=== PATIENT | female | born 1990 | race Caucasian/White ===

== ENCOUNTER → 2021-09-19 12:26 | Outpatient (CLI) | payer MEDICAID, SELFPAY ==
[2021-09-19 13:46] LABS: Absolute Lymphocyte Count 2.71 X10^3/uL (0.83-4.51); Absolute Neutrophil Count 2.9 X10^3/uL (2.0-7.7); Basophil# 0.04 X10^3/uL; Basophil% 0.7 % (0-1); Eosinophil# 0.04 X10^3/uL; Eosinophils% 0.7 % (0-5); Hematocrit 39.9 % (37-47); Hemoglobin 12.8 g/dL (12.0-15.0); Lymphocyte # 2.71 X10^3/ul (0.83-4.51); Lymphocyte % 44.4 % (19-41); Mean Corp Hgb Conc 32.1 g/dL (32-36); Mean Corpuscular Volume 90.3 fL (81-99); Mean Platelet Vol. 10.6 fl (6.2-12.0); Monocyte# 0.39 X10^3/uL; Monocyte% 6.4 % (0-10); NRBC Flagged by Analyzer 0 % (0-5); Neutrophil # 2.91 X10^3/uL (2.7-7.7); Neutrophil % 47.5 % (47-70); Platelet Count 295 K/mm3 (150-450); RBC Distribution Width CV 14.8 % (11.6-14.6); RBC Distribution Width SD 48.5 fl (35.1-43.9); Red Blood Count 4.42 M/mm3 (4.2-5.4); White Blood Count 6.1 K/mm3 (4.4-11.0)
[2021-09-19 14:20] LABS: Hemoglobin A1c 5.6 % (3.8-5.6)
[2021-09-19 14:57] LABS: AST(SGOT) 12 U/L (15-37); Alanine Aminotransfer ALT/SGPT 10 U/L (13-56); Albumin, Serum 3.7 g/dL (3.2-5.0); Alkaline Phosphatase 79 U/L (45-117); Anion Gap 5 (5-15); BUN 8 mg/dL (7-18); BUN/Creat Ratio 8.6 RATIO (10-20); Calcium,Total 8.7 mg/dL (8.5-10.1); Chloride 108 mmol/L (98-107); Cholesterol 147 mg/dL (200); Creatinine, Serum 0.93 mg/dL (0.55-1.02); EST Glomerular Filtration Rate 75 mL/min (>60); Est Glom Filt Rate - Afr Amer 91 mL/min (>60); Globulin 3.6 g/dL (2.2-4.2); Glucose 83 mg/dL (74-106); HIV - WCH Non-Reactive (Nonreactive); Hepatitis C Antibody Non-Reactive (Nonreactive); High Density Lipoprotein 64 mg/dL; Potassium 3.9 mmol/L (3.5-5.1); Protein, Total 7.3 g/dL (6.4-8.2); Sodium Level 139 mmol/L (136-145); T4 Free Direct 0.96 ng/dL (0.76-1.46); Thyroid Stim Hormone (TSH) 0.66 uIU/mL (0.358-3.74); Triglycerides 90 mg/dL; Very Low Density Lipoprotein 18 mg/dL (5-40); Vitamin B12 474 pg/mL (211-911); Vitamin D,25 Hydroxy 19.4 ng/mL
== END ==
PROVIDERS: PCP Preventive Medicine Occupational Medicine
DX: F33.1 Major depressive disorder, recurrent, moderate (principal); F10.20 Alcohol dependence, uncomplicated; F11.20 Opioid dependence, uncomplicated
CPT/HCPCS: 36415; 80053; 80061; 82306; 82607; 82746; 83036; 84439; 84443; 85025; 86703; 86803

== ENCOUNTER → 2022-04-17 | Outpatient (CLI) | payer MEDICAID, SELFPAY ==
[2022-04-17 12:40] LABS: Lipase 120 U/L (73-393)
== END | disposition home or self-care (01) ==
LOC: LABSPEC 12:12
PROVIDERS: PCP Preventive Medicine Occupational Medicine; Referring Provider Nurse Practitioner Family; Visit Provider Nurse Practitioner Family
DX: R10.31 Right lower quadrant pain (principal)
CPT/HCPCS: 83690

== ENCOUNTER 2023-07-11 10:14 | Emergency (ER) | payer MEDICAID, SELFPAY ==
[2023-07-11 10:15] VITALS: BP 182/113; PULSE 94; RESP 16; TEMP 36.2; O2SAT 100; BMI 22.3
--- NOTE | 2023-07-11 12:36 | ED.RN ---
PT GOOGLED REMEDIES, LWBS.
== END 2023-07-11 12:49 | disposition left against medical advice (07) ==
LOC: ED 12:48
PROVIDERS: PCP Preventive Medicine Occupational Medicine
DX: Z53.21 Procedure and treatment not carried out due to patient leaving prior to being seen by health care provider (principal)

== ENCOUNTER 2025-03-10 08:00 | Outpatient (RCR) | payer MEDICAID, SELFPAY ==
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
[2025-03-10 10:06] VITALS: BP 142/92; PULSE 74
--- NOTE | 2025-03-10 11:10 | BH.SGPN.GN ---
Behaviors/Verbalizations/Mental Status: []Pt alert and oriented, casually dressed and groomed. Eye contact good. Motor activity appropriate. Speech within normal limits. Affect congruent, mood anxious and depressed. Thoughts linear, logical, no signs of hallucinations or delusions. Client Response/Progress/Benefit: [] Pt responded well to session, participating in activity and small group discussion. Group reviewed the rest of the defense mechanisms and discussed how these are adaptive, maladaptive, or somewhere in the duong. Pt's defense mechanisms included rationalization, suppression, denial, projection, and humor. Pt listened to electrophysiology technician teach different skills to help pt?s cope with or change their defense mechanisms. Pt appeared to benefit from gaining insight to the different defense mechanisms and learning coping skills. Reports wanting to work on reducing use of denial. Pt will continue IOP tx to prevent decompensation, improve distress tolerance skills, and increase self-confidence. Narrative Note: []
--- NOTE | 2025-03-10 11:10 | BH.SGPN.GN ---
Behaviors/Verbalizations/Mental Status: []Pt alert and oriented, casually dressed and groomed. Eye contact good. Motor activity appropriate. Speech within normal limits. Affect congruent, mood anxious and depressed. Thoughts linear, logical, no signs of hallucinations or delusions. Client Response/Progress/Benefit: [] Pt responded well to session, participating in activity and small group discussion. Group reviewed the rest of the defense mechanisms and discussed how these are adaptive, maladaptive, or somewhere in the duong. Pt's defense mechanisms included rationalization, suppression, denial, projection, and humor. Pt listened to [employer] consultant teach different skills to help pt?s cope with or change their defense mechanisms. Pt appeared to benefit from gaining insight to the different defense mechanisms and learning coping skills. Reports wanting to work on reducing use of denial. Pt will continue IOP tx to prevent decompensation, improve distress tolerance skills, and increase self-confidence. Narrative Note: []
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
--- NOTE | 2025-03-10 11:39 | BH.DR.ITP ---
Initial Treatment Plan Patient Information Visit Information: ADMISSION DATE: EXPECTED LOS: 4-6 weeks Problems/Symptoms Problem #1:: Depression Symptom:: Sadness, hopelessness, anhedonia, hypersomnia, low energy, decreased concentration, guilt, passive thoughts of Problem #2:: Anxiety Symptom:: Worry, rumination, recent panic attack, avoidance, flashbacks
--- NOTE | 2025-03-10 12:14 | BH.MTP ---
Master Treatment Plan Patient Information Program Physician:: Dr. Abreu Primary Therapist:: Katt Pat, [facility] Psychiatric Diagnoses Psychiatric Diagnoses:: 1. Major depressive disorder, recurrent, severe without psychosis 2. Generalized anxiety disorder 3. PTSD 4. ADD 5. Methamphetamine use disorder in full remission for 3 years 6. THC use disorder Diagnosis Code(s):: F33.2 Estimated LOS Estimated LOS (in weeks):: 6 Problem/Goal #1 Problem/Goal #1 Stated Goal:: Client will reduce depressive symptoms, feelings of hopelessness, and anhedonia due to Major Depressive Disorder through Intensive Outpatient Program. Description of Barriers: Potential barriers to treatment include: negative self-talk, limited support, cognitive distortions, and relying on others for transportation for treatment. Functional Impact: The patient is a 34-year-old single female with a history of depression, anxiety, PTSD, ADD, and methamphetamine use disorder (in full remission for 3 years) who was referred to the [facility] behavioral health [facility] by recovery court due to her inability to function well due to the above mental health issues. Patient currently lives alone and is working to gain back her 9-year-old son. Patient has had depressive episodes for most of my life which leave her frozen. She states that she will lie on the couch for weeks at a time and she wants to sleep all the time to escape She endorses sadness, hopelessness, worthlessness, anhedonia, hypersomnia sleeping 8 to 12 hours a day and taking naps. She also endorses low energy, decreased concentration, guilt and passive thoughts of . She states I do not want to really , just not wake up. She denies suicidal ideation, plan for suicide, homicidal ideation, hallucinations, delusions or symptoms of cliff ever. She is a worrier by nature and ruminates negatively. Objectives Objective #1: Stated Objective: Client will learn and utilize 2-3 healthy coping strategies to manage depressive symptoms. Interventions: Therapist will utilize CBT techniques to assist client with understanding the connection between thoughts, feelings and behaviors. Education will be provided on behavioral activation. Therapist will assist client in learning internal coping strategies to manage depressive symptoms, along with helping client identify triggers. Discharge Criteria: Client will have achieved this goal when can verbalize and has practiced at least 2 healthy coping strategies that successfully manage depressive symptoms. Target Date: 04/21/25 Review Date: 04/07/25 Objective #2: Stated Objective: Identify at least 2-3 negative self-talk messages that reinforce depressed mood and replace thoughts with positive messages. Interventions: Therapist will help client identify distorted, negative beliefs about self and replace with more realistic, affirmative messages. Discharge Criteria: Client will have achieved this goal when can verbalize at least 2 negative self-talk messages and effectively replace those thoughts with affirmative messages. Target Date: 04/21/25 Review Date: 04/07/25 Problem/Goal #2 Problem/Goal #2 Stated Goal:: Reduce overall frequency, intensity, and duration of the anxiety so that daily functioning is not impaired. Description of Barriers: Potential barriers to treatment include: negative self-talk, limited support, cognitive distortions, and relying on others for transportation for treatment. Functional Impact: The patient is a 34-year-old single female with a history of depression, anxiety, PTSD, ADD, and methamphetamine use disorder (in full remission for 3 years) who was referred to the [facility] behavioral health [facility] by recovery court due to her inability to function well due to the above mental health issues. Patient currently lives alone and is working to gain back her 9-year-old son. Patient has had depressive episodes for most of my life which leave her frozen. She states that she will lie on the couch for weeks at a time and she wants to sleep all the time to escape She endorses sadness, hopelessness, worthlessness, anhedonia, hypersomnia sleeping 8 to 12 hours a day and taking naps. She also endorses low energy, decreased concentration, guilt and passive thoughts of . She states I do not want to really , just not wake up. She denies suicidal ideation, plan for suicide, homicidal ideation, hallucinations, delusions or symptoms of cliff ever. She is a worrier by nature and ruminates negatively. Objectives Objective #1: Stated Objective: Client will learn and implement 2-3 calming skills to reduce overall anxiety and manage anxiety symptoms. Interventions: Therapist and group sessions will help client identify physiological warning signs of anxiety, increase awareness of thoughts that increase anxiety, and identify behaviors that reinforce anxious symptoms. Group and individual counseling will teach client calming skills to help manage anxious symptoms. Discharge Criteria: Client will have achieved this goal when can verbalize at least 2 calming skills and reports skills successfully help reduce anxious symptoms. Target Date: 04/21/25 Review Date: 04/07/25 Objective #2: Stated Objective: Client will identify 2-3 anxiety triggers and 2 coping skills to use when feeling anxious. Interventions: Therapist will assist client in exploring what triggers anxiety and teach client coping strategies to effectively manage anxiety symptoms. Discharge Criteria: Client will have met this goal when can identify at least 2 triggers to anxiety and verbalize two healthy ways to cope with feelings of anxiety. Target Date: 04/21/25 Review Date: 04/07/25
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
--- NOTE | 2025-03-11 09:05 | BH.SGPN.GN ---
Behaviors/Verbalizations/Mental Status: [] Eye contact is good. Motor activity is appropriate. Appearance is disheveled. Speech is Appropriate. Mood is depressed and anxious. Affect is congruent. Thoughts are linear and logical. No evidence of psychosis. Reviewed daily check in sheet and no reports of suicidal ideations or intent. Client Response/Progress/Benefit: [] Pt was an active participant in group discussions. Attentive. Daily symptom tracker notes 5/5 for depression, 4/5 for anxiety, and 3/5 for irritability. Pt participated at times during the group discussions. Attentive. Admits that it was a struggle to get into IOP today due to depression and lack of motivation. ? Didn?t want to get out of bed?. Feels overwhelmed and depressed. She has a case open with children services which she discussed briefly. They have been encouraging her to clean up her house however due to significant depression this has been very difficult. She did however move a mattress yesterday. Group praised her for her efforts. Limited progress as this was her second day in IOP. Benefited from group support, encouragement, and feedback. Will continue in IOP to prevent decompensation, increase healthy coping, and improve functioning. Narrative Note: []
--- NOTE | 2025-03-11 10:15 | BH.SGPN.GN ---
Behaviors/Verbalizations/Mental Status: []Eye contact is fair. Motor activity is appropriate. Appearance is casual. Speech is Appropriate. Mood is anxious and depressed. Affect is congruent. Thoughts are linear and logical. No evidence of psychosis. Client Response/Progress/Benefit: [] Pt was an active participant in group discussions. Attentive during psychoeducation. Contributed during interactive discussions in which peers attempted to define crisis. Group identified crisis examples. Group also worked together to identify warning signs and unhealthy responses to crisis which included shutting down, isolation, avoidance, over-thinking, disordered eating, and self-harm. Pt identified top 3 warning signs as: loss of motivation, racing thoughts, and isolating/avoiding others. Benefited from increased understanding of crisis and awareness of personal responses to crisis. Pt will continue IOP tx to prevent decompensation, gain healthy coping skills, and increase daily functioning. Narrative Note: []
--- NOTE | 2025-03-11 11:15 | BH.SGPN.GN ---
Behaviors/Verbalizations/Mental Status: []Pt alert and oriented, appropriate grooming/appearance. Eye contact good. Motor activity appropriate. Speech within normal limits. Affect congruent, mood depressed and anxious. Thoughts linear, logical, no signs of hallucinations or delusions. Client Response/Progress/Benefit: []Pt was an active participant in group discussions. Attentive during psychoeducation. In small group pt along with peers developed an active plan for their crisis warning signs. Pt identified three crisis warning signs as well as an action plan for each. One crisis warning sign was low motivation. Pt identified strategies to help with this such as: starting small, opposite action, positive self-talk, and reaching out to supports for help. Benefited from increased awareness of crisis warning signs and by developing crisis intervention strategies. Will continue in IOP to improve distress tolerance, increase use of healthy coping, and improve daily functioning. Narrative Note: []
--- NOTE | 2025-03-12 09:05 | BH.SGPN.GN ---
Behaviors/Verbalizations/Mental Status: [] Eye contact is good. Motor activity is appropriate. Appearance is disheveled. Speech is Appropriate. Mood is anxious and depressed. Affect is congruent. Thoughts are linear and logical. No evidence of psychosis. Reviewed daily check in sheet and no reports of suicidal ideations or intent. Client Response/Progress/Benefit: [] Pt was an active participant in group discussions. Attentive. Admits to struggling with anxiety, panic, and guilt. Reports having a ?freak out? over yesterday which resulted in utilizing cannabis to self-medication and cope. This led to feelings of guilt and failure due to the relapse. Also led to hopelessness. Shared the guilt associated with use. Limited motivation and energy. Continues to isolate and rely on unhealthy coping. Attempted behavior activation these last several days to help complete certain tasks. Emotion for today is ?blah?. No progress noted. Benefited from group support, encouragement, and feedback. Will continue in IOP to prevent decompensation, increase healthy coping, and improve functioning. Narrative Note: []
--- NOTE | 2025-03-12 10:10 | BH.SGPN.GN ---
Behaviors/Verbalizations/Mental Status: []Pt alert and oriented, casually dressed and groomed. Eye contact good. Motor activity appropriate. Speech within normal limits. Affect congruent, mood anxious. Thoughts linear, logical, no signs of hallucinations or delusions. Client Response/Progress/Benefit: []Pt was an active participant in group discussion and activity. Attentive during psychoeducation. Along with peers, pt was able to identify barriers to taking action in their life. Identified several symptoms and stressors that pt feels are holding them back from progress such as unhealthy coping skills, negative self-talk, and low confidence. Pt able to identify how these things have negatively impacted progress. Benefited from increased self-awareness of obstacles. Pt will continue IOP to improve daily functioning, increase healthy coping, and prevent decompensation.
--- NOTE | 2025-03-12 11:10 | BH.SGPN.GN ---
Behaviors/Verbalizations/Mental Status: []Pt alert and oriented, disheveled appearance. Eye contact good. Motor activity appropriate. Speech within normal limits. Affect congruent, mood anxious. Thoughts linear, logical, no signs of hallucinations or delusions. Client Response/Progress/Benefit: [] Pt responded well to session, taking notes and participating in worksheet discussion. Pt connected with the discussion on action steps, and this helped pt learn how to set goals differently. Pt set a SMART goal that she will write 3-5 triggers for her anger by next week. Pt shared putting up sticky note reminders and talking to her counselor will support pt in accomplishing this goal. Appeared to benefit from identifying a small goal to benefit mental health. Pt is to continue IOP tx to prevent decompensation, improve daily functioning, and gain healthy coping skills. Narrative Note: []
--- NOTE | 2025-03-19 09:05 | BH.SGPN.GN ---
Behaviors/Verbalizations/Mental Status: [] Eye contact is good. Motor activity is appropriate. Appearance is casual. Speech is Appropriate. Mood is euthymic. Affect is full. Thoughts are linear and logical. No evidence of psychosis. Reviewed daily check in sheet and no reports of suicidal ideations or intent. Client Response/Progress/Benefit: [] Narrative Note: [] Behaviors/Verbalizations/Mental Status: [] Eye contact is good. Motor activity is appropriate. Appearance is casual. Speech is Appropriate. Mood is euthymic. Affect is full. Thoughts are linear and logical. No evidence of psychosis. Reviewed daily check in sheet and no reports of suicidal ideations or intent. Client Response/Progress/Benefit: [] Narrative Note: []
--- NOTE | 2025-03-19 10:10 | BH.SGPN.GN ---
Behaviors/Verbalizations/Mental Status: [] Client alert and oriented, casually dressed and groomed. Eye contact good. Motor activity appropriate. Speech within normal limits. Affect congruent, mood euthymic. Thoughts linear, logical, no signs of hallucinations or delusions. Client Response/Progress/Benefit: [] Client responded well to session AEB providing input, taking notes throughout and listening attentively to others. Client was attentive throughout group activity identifying famous individuals and how they overcame failure to be successful. Client helped group identify how fear of failure can impact mental health and relationships Group identified it leads to self-sabotage, low self confidence, not trying, and isolation. Client participated in experiential activity, working with group members to problem solve. Appeared to benefit from increased knowledge of fear of failure. Will continue IOP tx to improve self-confidence, reduce distorted thinking patterns, and prevent decompensation. Narrative Note: []
--- NOTE | 2025-03-19 11:10 | BH.SGPN.GN ---
Behaviors/Verbalizations/Mental Status: [] Client alert and oriented, casually dressed and groomed. Eye contact good. Motor activity appropriate. Speech within normal limits. Affect congruent, mood euthymic. Thoughts linear, logical, no signs of hallucinations or delusions. Client Response/Progress/Benefit: [] Client responded well to session, engaged in the experiential activity and attentive throughout group processing. Client reported fear of failure has kept client from talking with children services. Client completed fear of failure worksheet and was able to identify thoughts and behaviors that reinforce personal fear of failure including isolating and putting up with rude people instead of setting boundaries. Client participated in small group discussion regarding strategies to overcome fear of failure. Identified wanting to work on reaching out to others and taking advice. Appeared to benefit from increased knowledge of strategies to combat fear of failure and gaining self-awareness. Client will continue IOP tx to prevent decompensation increase ability to regulate emotions. Narrative Note: []
== END 2025-03-20 23:59 ==
LOC: BHIOP 08:00
PROVIDERS: PCP Preventive Medicine Occupational Medicine; Referring Provider Psychiatry & Neurology Psychiatry; Visit Provider Psychiatry & Neurology Psychiatry
DX: F33.2 Major depressive disorder, recurrent severe without psychotic features (principal); F41.1 Generalized anxiety disorder; F43.10 Post-traumatic stress disorder, unspecified; F90.1 Attention-deficit hyperactivity disorder, predominantly hyperactive type; F12.91 Cannabis use, unspecified, in remission; F15.91 Other stimulant use, unspecified, in remission
CPT/HCPCS: H2012; H2020

== ENCOUNTER 2025-03-22 07:28 | Outpatient (RCR) | payer MEDICAID, SELFPAY ==
[2025-03-21 00:24] VITALS: BP 142/92; PULSE 74
--- NOTE | 2025-03-24 10:10 | BH.SGPN.GN ---
Behaviors/Verbalizations/Mental Status: []Eye contact is good. Motor activity is appropriate. Appearance is casual. Speech is Appropriate. Mood is depressed. Affect is congruent. Thoughts are linear and logical. No evidence of psychosis. Client Response/Progress/Benefit: []Pt was an active participant in group discussion. Engaged and attentive during psychoeducation and interactive discussion on coping skills, why people use unhealthy coping skills, how to replace unhealthy coping skills, and internal vs external coping skills. Attentive as peers came up with list of unhealthy coping skills. Pt reported personally, they tend to either numb, isolate, or avoid. Group discussed the effects of maladaptive coping skills on mental health. Benefited from increased understanding of unhealthy coping skills and the need for developing healthy internal and external coping skills. Actively participated during experiential group activity and was able to related this activity to group topic. Will continue in IOP to promote sobriety, apply healthy coping skills, and promote mood stability. Narrative Note: []
--- NOTE | 2025-03-24 11:15 | BH.SGPN.GN ---
Behaviors/Verbalizations/Mental Status: [] Pt alert and oriented, casual in appearance. Eye contact good. Motor activity appropriate. Speech within normal limits. Affect congruent, mood anxious. Thoughts linear, logical, no signs of hallucinations or delusions. Client Response/Progress/Benefit: [] Pt did not engage in group discussions however was attentive AEB taking notes, and listening attentively to others. Group discussed the different categories of coping skills which included distraction, emotional release, grounding, self-love, and thought challenging. Pt participated in creating a coping skills ?menu? from the different categories of coping skills. Pt's coping skill menu included: walking, grounding, crafting, and challenge distorted thoughts. Appeared to benefit from increasing repertoire of healthy coping skills. Will continue IOP to promote healthy coping, challenge distortions, and prevent decompensation.
--- NOTE | 2025-03-24 14:45 | BH.MDN_ITS ---
Multi-Disciplinary Note Note 45-min Individual: Time Started:: 09:00 Date: 03/24/25 Purpose of session/treatment goals addressed:: Purpose of session was to build rapport, review treatment goals, and gather background information. Eye Contact:: Good Motor Activity:: Appropriate Appearance:: Casual Speech:: Appropriate Mood:: Depressed Affect:: Congruent Thoughts:: Linear, Logical and No evidence of hallucinations/delusions noted Staff Interventions:: psychoeducation on: (cognitive triangle), CBT techniques, rapport building, strengths perspective, treatment planning and taught coping skills (behavior activation) Client Response:: Client reported she is seeking treatment because she is currently in recovery court and IOP was recommended to her. Client stated she is working towards staying sober and accomplishing the tasks that recovery court requires so she can get custody back of her son. Client shared her son is currently in kinship care living with her boyfriend and boyfriend's mom. Client stated she has been able to stay sober from meth, but is struggling with staying sober from marijuana. Client reported frustrated with herself for continuing to relapse with marijuana. Client reported she has done previous rehabs and [facility] treatment. Client stated while in IOP she wants to focus on being able to manage her depressed symptoms better. Client reported she struggles with negative thought patterns specifically focused on thoughts that she should be a better mom. Client stated she often jacob with her depressed mood by sleeping. Client stated she hasn't been engaging in things she enjoys like playing video games. Client reported she mostly lays around most days because she gets stuck in thinking she should be with her kids. Client responded well to psychoeducation about cognitive triangle and behavior activation. Client agreeable it would be helpful to focus on opposite action of showering, self- care, and trying to get back into video games. Risks/Concerns:: Denies suicidal ideation, plan, or intention to date. Progress Toward Goals/Plan:: Progress variable. Client reported struggling with cravings for marijuana, but has noted able to refrain from smoking. Client agreeable to focus on opposite action to get back into doing things she used to enjoy and decrease how much she is using sleep as a coping skill. Client to continue IOP to improve daily functioning, increase healthy coping, and prevent decompensation. Time Stopped:: 09:45
--- NOTE | 2025-03-25 09:05 | BH.SGPN.GN ---
Behaviors/Verbalizations/Mental Status: [] Eye contact is good. Motor activity is appropriate. Appearance is casual. Speech is Appropriate. Mood is anxious. Affect is congruent. Thoughts are linear and logical. No evidence of psychosis. Reviewed daily check in sheet and no reports of suicidal ideations or intent Client Response/Progress/Benefit: [] Pt was an active participant in group discussions. Attentive. Shared with the group that her primary goal is to stop cannabis use. Reports that she had a discussion with children's services and they were very clear that she cannot regain custody unless she is sober from all drugs. She accepts this and is able to reframe this consequence as a motivator to make changes in her life. She discussed the psychological dependence that she has on cannabis as she believes that it can help with motivation and sleep, however quickly pointed out the overall using has caused more harm than good. Certain peers shared thier journey with stopping cannabis use which was beneficial. Progress noted. Benefited from group support, encouragment, and feedback. Will continue in IOP to prevent decompensation, increase healthy coping skills, and improve functioning. Narrative Note: []
--- NOTE | 2025-03-25 11:15 | BH.SGPN.GN ---
Behaviors/Verbalizations/Mental Status: [] Client alert and oriented, casually dressed and groomed. Eye contact good. Motor activity appropriate. Speech within normal limits. Affect congruent, mood depressed. Thoughts linear, logical, no signs of hallucinations or delusions Client Response/Progress/Benefit: [] Client was an active participant, AEB taking notes and providing input in group discussions and activities. Attentive during psychoeducation. Client engaged during interactive discussion in which the group defined self-care and discussed its benefits. Group discussed barriers to engaging in self-care, reports connecting with barrier of lack of motivation. Client participated in small groups where they worked to identify common self-care ?myths?. Benefited from increased awareness of self-care, its benefits, and the consequences of not utilizing self-care strategies. Will continue IOP tx to prevent decompensation, promote healthy coping skill application, and increase functioning. Narrative Note: []
--- NOTE | 2025-03-25 11:15 | BH.SGPN.GN ---
Behaviors/Verbalizations/Mental Status: []Client alert and oriented, disheveled appearance. Eye contact good. Motor activity appropriate. Speech within normal limits. Affect congruent, mood depressed and anxious. Thoughts linear, logical, no signs of hallucinations or delusions. Client Response/Progress/Benefit: [] Pt engaged participant AEB completing self-assessment worksheet and providing input throughout discussion. Pt completed worksheet identifying current self-care practices and what self-care activities Pt wants to start using. Pt selected emotional self-care to begin practicing more consistently. Pt plans to do this by ?letting myself sit in emotions instead of numbing.? Appeared to benefit from completing the self-care evaluation and gaining insights into current self-care practices, as well as identifying areas in which Pt would like to improve upon. Pt will continue IOP tx to prevent decompensation, maintain sobriety, and increase distress tolerance skills. Narrative Note: []
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
--- NOTE | 2025-03-26 10:00 | BH.SGPN.GN ---
Behaviors/Verbalizations/Mental Status: [] Eye contact is good. Motor activity is appropriate. Appearance is casual. Speech is Appropriate. Mood is anxious and depressed. Affect is congruent. Thoughts are linear and logical. No evidence of psychosis. Client Response/Progress/Benefit: [] Pt was engaged and participating throughout, providing input and taking notes. Attentive during psychoeducation on anxiety and cognitive triangle. Participated in an interactive discussion on defining anxiety and identifying cognitive and physiological symptoms of anxiety. The group discussed helpful vs harmful anxiety. Pt identified their physical/physiological signs of anxiety which includes:migraines, muscle tensions, and upset stomach Benefited from increased awareness and insight on anxiety and its impact. Will continue in IOP to prevent decompensation, maintain safety, and increase healthy coping. Narrative Note: []
--- NOTE | 2025-03-26 11:00 | BH.SGPN.GN ---
Behaviors/Verbalizations/Mental Status: [] Eye contact is good. Motor activity is appropriate. Appearance is disheveled. Speech is Appropriate. Mood is anxious. Affect is congruent. Thoughts are linear and logical. No evidence of psychosis. Client Response/Progress/Benefit: [] Pt was an active participant AEB pt providing input and listening attentively to peers. Attentive during psychoeducation on mindfulness coping skills, body-based coping skills, and mind-based coping skills and their impact on reducing anxiety and improving overall mental health wellness. Group was able to identify self-soothing and mind-based coping skills which included: 5-senses, meditation, deep breathing, TIPP, thought challenging, prayer, affirmation, brain games, weighted blanket, and progressive muscle relaxation. Pt also participated with peers in practicing progressive muscle relaxation during session. Appeared to benefit from increasing repertoire of anxiety reduction skills. Pt will continue IOP to prevent decompensation, stablize mood, increase healthy coping, and improve functioning. Narrative Note: []
--- NOTE | 2025-03-31 10:00 | BH.SGPN.GN ---
Behaviors/Verbalizations/Mental Status: []Client alert and oriented, casually dressed. Eye contact good. Motor activity appropriate. Speech within normal limits. Affect congruent, mood anxious and depressed. Thoughts linear, logical, no signs of hallucinations or delusions. Client Response/Progress/Benefit: [] Pt was an active participant AEB taking notes and engaging in group activity. Connected with the topic of pitfalls and listened to group discussion on barriers that prevent from choosing a healthier path to mental wellness. Group worked together to identify examples of personal pitfalls. These examples included; shutting down, not asking for help, negative thinking patterns, avoidance, and isolation. Pt benefited from group as Pt learned to better identify potential barriers to improving mental health symptoms. Identified personal barrier of numbing with substances. Pt will continue IOP tx to prevent decompensation, improve distress tolerance, and increase self-care. Narrative Note: []
--- NOTE | 2025-03-31 13:57 | BH.MDN_ITS ---
Multi-Disciplinary Note Note 30-min Individual: Time Started:: 11:30 Date: 03/31/25 Purpose of session/treatment goals addressed:: Purpose of session was to address goals 1 and 2 from MTP. Eye Contact:: Good Motor Activity:: Appropriate Appearance:: Casual Speech:: Appropriate Mood:: Anxious and Dysthymic Affect:: Congruent Thoughts:: Linear, Logical and No evidence of hallucinations/delusions noted Staff Interventions:: thought challenging, CBT techniques, rapport building, strengths perspective and taught coping skills Client Response:: Client reported she is feeling increased stress because child protective services is moving forward with seeking custody of her 8-year-old son. Client stated typically takes 4 to 6 weeks before all the paperwork officially goes to the court system and is just worried about what is going to happen with her son. Client stated she has been having cravings to smoke marijuana with the added stress. Client reported she has been able to refrain from relapsing because she knows it will make her situation even worse. Client stated she reminds herself of the consequences of smoking and relapsing. Client stated she beat herself up over the fact that she did recently relapse because he goes against her personal value of wanting to get her child back. Client receptive to psychoeducation about addiction brain and how the physiological need for dopamine can override logical thoughts and values. Client and therapist discussed strategies that could be helpful for her to maintain sobriety and decrease relapse in the moments she is under high stress which often increases her cravings. Client receptive to writing down helpful messages on Post-it notes and putting the messages around her apartment as a visual aid reminder why she wants to maintain sobriety and not sabotage her life. Client states she has been trying to focus on not laying around every day and staying in her apartment because she knows it is a trigger for increased cravings. Client stated recently she walked to a store, started working out, and taking care of her flower garden. Reviewed additional self-care activities that she could engage in to keep her focus on maintaining her mental health and decreasing risk of relapse. Client stated she has been attending denominational on Sundays and Bible study group on Saturday evenings. Client reported attending AA meetings is helpful and needs to still find a new sponsor that is more local. Risks/Concerns:: Denies suicidal ideation, plan, intention. Future oriented. Progress Toward Goals/Plan:: Client reporting increase in anxiety due to child protective services starting the process of getting custody of her 8-year-old son. Client noted she still can get her son back but recognizes once he is in the custody of CPS it will take longer and require more things for her to do. Client is continuing to report cravings of wanting to use marijuana as a form of escape but has been able to stop herself from reverting to the unhealthy coping skill. Therapist encouraged client to focus on what is within her control currently and focus on engaging in self-care activities that could be nefit her mental health and give her something to look forward to. Plan is for client to continue IOP to challenge distortions, maintain sobriety, and prevent decompensation. Time Stopped:: 12:00
--- NOTE | 2025-04-01 09:05 | BH.SGPN.GN ---
Behaviors/Verbalizations/Mental Status: [] Eye contact is good. Motor activity is appropriate. Appearance is casual. Speech is Appropriate. Mood is anxious and depressed. Affect is congruent. Thoughts are linear and logical. No evidence of psychosis. Reviewed daily check in sheet and no reports of suicidal ideations or intent. Client Response/Progress/Benefit: [] Pt was an active participant in group discussions. Attentive. Daily symptom tracker notes 3/5 for anxiety and 2/5 for depression. Pt shared that she continues to struggle with cannabis urges. Self-medicated with cannabis for several years and has significant cravings. She asked the group for feedback and suggestions for overwhelming urges to smoke. Group provided support and feedback which was beneficial. Limited healthy coping skills for emotion regulation. Will continue in IOP to prevent decompensation, stabilize mood, increase healthy coping, and improve functioning. Narrative Note: []
--- NOTE | 2025-04-01 10:15 | BH.SGPN.GN ---
Behaviors/Verbalizations/Mental Status: []Pt alert and oriented, casually dressed and groomed. Eye contact good. Motor activity appropriate. Speech within normal limits. Affect congruent, mood anxious. Thoughts linear, logical, no signs of hallucinations or delusions. Client Response/Progress/Benefit: [] Pt an active participant in group discussions on defining conflict (internal/external) and possible benefits to conflict. Attentive during psychoeducation on conflict styles (avoidant, accommodating, competing, cooperative) and engaged during group discussion in which peers identified the benefits and consequences to each conflict style. 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 Benefited from increased awareness of the impact of conflict styles in mental health. Will continue in IOP tx to gain healthy coping skills, improve daily functioning, and maintain sobriety. ? Narrative Note: []
--- NOTE | 2025-04-01 11:15 | BH.SGPN.GN ---
Behaviors/Verbalizations/Mental Status: []Client alert and oriented, casually dressed and groomed. Eye contact fair. Motor activity appropriate. Speech within normal limits. Affect congruent, mood dysthymic. Thoughts linear, logical, no signs of hallucinations or delusions. Client Response/Progress/Benefit: [] Pt engaged in session AEB contributing to discussion and engaging in small group. Attentive during discussion on strategies for more effectively managing conflict in personal life. Pt noted current conflict resolution style uses the most is avoidant. Pt participated in small group for activity and did well practicing how to manage conflict scenarios. Pt given handout on fair fighting rules and how to identify common conflict barriers. Appeared to benefit from gaining strategies to help Pt better manage conflict. Will continue IOP tx improve distress tolerance, improve view of self, and prevent decompensation.
--- NOTE | 2025-04-02 09:05 | BH.SGPN.GN ---
Behaviors/Verbalizations/Mental Status: [] Eye contact is good. Motor activity is appropriate. Appearance is casual. Speech is Appropriate. Mood is depressed and irritable. Affect is full. Thoughts are linear and logical. No evidence of psychosis. Reviewed daily check in sheet and no reports of suicidal ideations or intent. Client Response/Progress/Benefit: [] Pt was an active participant in group discussions. Attentive. Daily symptom tracker notes 5 for anxiety, depression, and irritability. She reports ? blow up? last night. Significant decompensation related to guilt and regret over past actions. She began to journal however was writing down all her negative thoughts ? hoping to get them out?. This structure was not effective as it escalated her thoughts and emotion dysregulation. Overwhelming depression and irritability. She eventually reached out to support to help calm herself down. Problem-solved with group on more appropriate structure for journaling such as writing down wins, goals, or affirmations rather than negative thoughts. With the help of group able to utilize last night as opportunity to learn. Improved mood this AM. Limited progress. She continues to struggle with finding and implementing in the moment coping skills or prevention skills. Will continue in IOP to prevent decompensation, stabilize mood, and increase healthy coping skills. Narrative Note: [] Behaviors/Verbalizations/Mental Status: [] Eye contact is good. Motor activity is appropriate. Appearance is casual. Speech is Appropriate. Mood is euthymic. Affect is full. Thoughts are linear and logical. No evidence of psychosis. Reviewed daily check in sheet and no reports of suicidal ideations or intent. Client Response/Progress/Benefit: [] Narrative Note: []
--- NOTE | 2025-04-02 10:15 | BH.SGPN.GN ---
Behaviors/Verbalizations/Mental Status: [] Pt alert and oriented, casually dressed and groomed. Eye contact good. Motor activity appropriate. Speech within normal limits. Affect congruent, mood euthymic. Thoughts linear, logical, no signs of hallucinations or delusions. Client Response/Progress/Benefit: [] Client receptive of session, actively engaged throughout AEB taking notes and providing input and examples to discussion. Appeared to connect with group topic of cognitive distortions and the impact of thought patterns on mental health, coping behaviors, and relationships. Client appeared to benefit from gaining insight on distorted thinking patterns and how this impacts overall mental health. Reports struggling with all or nothing thinking and predicting the future. Will continue IOP tx to increase overall functioning, prevent decompensation, and improve mood stability. Narrative Note: []
--- NOTE | 2025-04-02 11:15 | BH.SGPN.GN ---
Behaviors/Verbalizations/Mental Status: [] Pt alert and oriented, casually dressed and groomed. Eye contact good. Motor activity appropriate. Speech within normal limits. Affect congruent, mood euthymic. Thoughts linear, logical, no signs of hallucinations or delusions. Client Response/Progress/Benefit: [] Client responded well to session AEB input and examples during group activity. Group discussed and practiced methods of reframing cognitive distortions. Client participated in identifying cognitive distortions when examples were provided. Client discussed in group the different strategies to overcome the distortions. Client identified learning better which distortions she struggles with and ways to begin reframing them. Will continue tx to improve distress tolerance skill application and prevent decompensation. Narrative Note: []
--- NOTE | 2025-04-02 14:32 | BH.TPR ---
Treatment Plan Review Demographics Date of Admission:: 03/10/25 Date of Treatment Plan Review:: 04/02/25 Admitting Diagnoses:: 1. Major depressive disorder, recurrent, severe without psychosis F33.2 2. Generalized anxiety disorder 3. PTSD 4. ADD 5. Methamphetamine use disorder in full remission for 3 years 6. THC use disorder Current Diagnoses:: 1. Major depressive disorder, recurrent, severe without psychosis F33.2 2. Generalized anxiety disorder 3. PTSD 4. ADD 5. Methamphetamine use disorder in full remission for 3 years 6. THC use disorder Patient Status Patient's Response to Treatment:: Pt has responded well to treatment AEB consistent treatment attendance, engagement in group sessions, and engagement in individual sessions. Status of Current Problems and Symptoms: Ongoing problems. Client recently relapsed on marijuana and as a result CPS informed her they would be seeking custody of her son. Client stated once CPS has custody she can still work on getting her son back, but now the requirements will be more stringent compared to how it was. Client reports continued moderate to severe anxiety and moderate agitation. Client does not some improvement with decrease in depressed symptoms. Client has moments in which she still lays around, but has been trying to engage in opposite action. Progress Problem #1: Problem Name:: Depression Status of Goals:: Obj 1: progress noted, continued work encouraged. Client able to identify healthy coping skills like opposite action, engaging in hobbies, and challenging thoughts. Client admits to having difficulty with consistent application of skills, which she recognizes led to recent relapse. Per DSM 5 cross-cutting measure client's depression at review has decreased by 50%. Obj 2: Progress noted, ongoing work encouraged. Client has awareness of how her thought patterns can negatively impact her mood, but could benefit from continued practice and reinforcement of positive thoughts. Team Recommendations:: Team recommends client continue current goals and objectives to provide more time for consistent application of skills. Problem #2: Problem Name:: Anxiety Status of Goals:: Obj 1: not met. Client is able to identify healthy calming skills managing anxiety however lacks consistency with use of healthy skills. Client recently relapsed on marijuana use which has led to CPS reporting or they're likely going to seek custody of her son. Marijuana has become a coping skill for client and she's having difficulty with utilizing other ways to manage her anxiety. Obj 2: not met. Client struggles with consistent application of skills. Has awareness of triggers. Team Recommendations:: Team recommends client continue current goals and objectives to provide more time for consistent application of skills.
--- NOTE | 2025-04-06 09:05 | BH.SGPN.GN ---
Behaviors/Verbalizations/Mental Status: [] Pt alert and oriented, casually dressed and groomed. Eye contact good. Motor activity appropriate. Speech within normal limits. Affect congruent, mood anxious and sad. Thoughts linear, logical, no signs of hallucinations or delusions. Reviewed pt?s symptom tracker, no risk for suicidal ideation, plan, or intent 04/06/25. Client Response/Progress/Benefit: [] Pt was an active participant in group discussions. Attentive. Able to identify mental health wins including not smoking marijuana for almost a week now and getting to IOP today despite being tired and wanting to isolate. Pt's stressor today is ?I was on the phone with my son last night and he was sobbing because he wanted to come home.? The group offered pt encouragement and reinforced pt?s sobriety which pt reported benefitting from. Pt is feeling hurt for my kid? this morning. Pt receptive to feedback from peers which pt reported was helpful. Progress noted. Benefited from group support, encouragement, and feedback. Will continue IOP tx to prevent relapses, increase distress tolerance skills, and improve daily functioning. ?? Narrative Note: []
--- NOTE | 2025-04-06 10:00 | BH.SGPN.GN ---
Behaviors/Verbalizations/Mental Status: []Pt alert and oriented, casually dressed and groomed. Eye contact good. Motor activity appropriate. Speech within normal limits. Affect congruent, mood content. Thoughts linear, logical, no signs of hallucinations or delusions. Client Response/Progress/Benefit: [] Pt participated in the group discussions AEB providing input and taking notes. Attentive during psychoeducation on Goal Setting. Participated during the discussion on common barriers. Pt worked with group to identify common barriers to goal setting and pt reported personal barriers as low motivation, negative thinking, and giving up when hard. Group also identified benefits of goals, which included: sense of purpose, improved self-confidence, more motivation for other goals, sense of accomplishment, and improved mental health. Pt identified personal benefits to goal setting. Benefited from increased awareness of mental health benefits of goals as well as psychoeducation on SMART goal criteria. Will continue in IOP to prevent decompensation, gain healthy coping skills, and improve distress tolerance skills. ?? Narrative Note: []
--- NOTE | 2025-04-06 11:10 | BH.SGPN.GN ---
Behaviors/Verbalizations/Mental Status: [] Client alert and oriented, casual appearance. Eye contact good. Motor activity appropriate. Speech within normal limits. Affect congruent, mood euthymic. Thoughts linear, logical, no signs of hallucinations or delusions. Client Response/Progress/Benefit: [] Pt was engaged during discussion and experiential activity. Completed the worksheet challenging them to develop a personal SMART goal. Pt chose a SMART goal to challenge distorted thought patterns by writing in her thought log at least 2 times a week.? Believes this goal will benefit her by helping her be more positive and view self in a more positive way. Identified obstacles such as procrastinating and forgetting. Pt able to come up with solutions for barriers. Benefited from this group by developing a short-term SMART goal related to mental health. Will continue IOP to prevent decompensation, improve daily functioning, and gain healthy coping skills. ??
--- NOTE | 2025-04-07 10:00 | BH.SGPN.GN ---
Behaviors/Verbalizations/Mental Status: []Pt alert and oriented, casually dressed and groomed. Eye contact good. Motor activity appropriate. Speech within normal limits. Affect congruent, mood euthymic. Thoughts linear, logical, no signs of hallucinations or delusions. Client Response/Progress/Benefit: [] Pt was an active participant in group discussion and experiential activity. Attentive during psychoeducation on resilience and provided input throughout. Participated in interactive discussion with peers on the definition of resilience and where it comes from. Group identified that resiliency can be impacted by; past experiences, upbringing, and personality traits. Able to relate experiential activity of group juggle to topics of resilience. Worked with peers in small group in which they identified factors that contribute to resilience. Benefited from increased awareness of resilience and the factors that contribute to building resilience. Will continue in IOP tx to improve distress tolerance skills, maintain sobriety, and improve daily functioning. ??? Narrative Note: []
--- NOTE | 2025-04-07 14:22 | BH.MDN_ITS ---
Multi-Disciplinary Note Note 30-min Individual: Time Started:: 11:30 Date: 04/07/25 Purpose of session/treatment goals addressed:: Purpose of session was to address goals 1 and 2 from MTP. Eye Contact:: Good Motor Activity:: Appropriate Appearance:: Casual Speech:: Appropriate Mood:: Anxious Affect:: Congruent Thoughts:: Linear, Logical and No evidence of hallucinations/delusions noted Staff Interventions:: thought challenging, CBT techniques and strengths perspective Client Response:: Client reported feeling anxious and upset today. Client stated she is going to talk to her child protective Services corporate security manager today about concerns she has with her son continuing to stay in kinship care with client's boyfriend. Client stated last night she was on the phone with her son and overheard her boyfriend making fun of her son for having an accident. Client reported her son became extremely distressed by the boyfriend making fun of him. Client stated her experiencing and witnessing this has motivated her to continue her sobriety journey in order to get her son back and believes it is important for her to talk to her case packer and sealer through chapter to services about her concerns. Client stated she recognizes this could result in protective services taking custody of her son but wants to do everything she can to protect her son. Client stated she did have the craving to smoke marijuana yesterday evening but instead went over to her neighbor's house which helped distract her from trying to get marijuana. Client and therapist reviewed other skills and strategies client can utilize to manage cravings. Risks/Concerns:: Denies suicidal ideation, plan or intention to date. future oreitned. Progress Toward Goals/Plan:: Progress noted with client continuing to report sobriety. Client has been challenging her negative thoughts and trying to get involved in activities like gardening, video games, and walking to have healthier distractions. Client did have recent craving to use marijuana, but instead reached out to a support. Plan is for client to continue IOP to maintain sobriety, challenge distortions, and prevent decompensation. Time Stopped:: 12:00
--- NOTE | 2025-04-07 14:22 | BH.MDN_ITS ---
Multi-Disciplinary Note Note 30-min Individual: Time Started:: 11:30 Date: 04/07/25 Purpose of session/treatment goals addressed:: Purpose of session was to address goals 1 and 2 from MTP. Eye Contact:: Good Motor Activity:: Appropriate Appearance:: Casual Speech:: Appropriate Mood:: Anxious Affect:: Congruent Thoughts:: Linear, Logical and No evidence of hallucinations/delusions noted Staff Interventions:: thought challenging, CBT techniques and strengths perspective Client Response:: Client reported feeling anxious and upset today. Client stated she is going to talk to her child protective Services dredge worker today about concerns she has with her son continuing to stay in kinship care with client's boyfriend. Client stated last night she was on the phone with her son and overheard her boyfriend making fun of her son for having an accident. Client reported her son became extremely distressed by the boyfriend making fun of him. Client stated her experiencing and witnessing this has motivated her to continue her sobriety journey in order to get her son back and believes it is important for her to talk to her patient case manager through chapter to services about her concerns. Client stated she recognizes this could result in protective services taking custody of her son but wants to do everything she can to protect her son. Client stated she did have the craving to smoke marijuana yesterday evening but instead went over to her neighbor's house which helped distract her from trying to get marijuana. Client and therapist reviewed other skills and strategies client can utilize to manage cravings. Risks/Concerns:: Denies suicidal ideation, plan or intention to date. future oreitned. Progress Toward Goals/Plan:: Progress noted with client continuing to report sobriety. Client has been challenging her negative thoughts and trying to get involved in activities like gardening, video games, and walking to have healthier distractions. Client did have recent craving to use marijuana, but instead reached out to a support. Plan is for client to continue IOP to maintain sobriety, challenge distortions, and prevent decompensation. Time Stopped:: 12:00
--- NOTE | 2025-04-09 09:00 | BH.SGPN.GN ---
Behaviors/Verbalizations/Mental Status: [] Pt alert and oriented, casually dressed. Eye contact good. Motor activity appropriate. Speech within normal limits. Affect congruent, mood euthymic. Thoughts linear, logical, no signs of hallucinations or delusions. Reviewed pt?s symptom tracker, no risk for suicidal ideation, plan, or intent 04/09/25. Client Response/Progress/Benefit: [] Pt was an active participant in group discussions. Attentive. Able to identify mental health wins including having urges to smoke last night but not and spending time with her mother yesterday. Pt's stressor today is ?it?s harder to admit than I?d like, but quitting weed has been hard.? The group offered pt encouragement and emotional support which pt reported was helpful. Pt is feeling happy? this morning. Pt receptive to feedback from peers which pt reported was helpful. Progress noted. Benefited from group support, encouragement, and feedback. Will continue IOP tx to increase distress tolerance skills, reduce negative self-talk, and increase healthy coping skills. Narrative Note: []
--- NOTE | 2025-04-09 10:10 | BH.SGPN.GN ---
Behaviors/Verbalizations/Mental Status:?[] Client alert and oriented, casually dressed and groomed. Eye contact good. Motor activity appropriate. Speech within normal limits. Affect congruent, mood anxious, euthymic. Thoughts linear, logical, no signs of hallucinations or delusions. Client Response/Progress/Benefit:?[] Pt engaged in session AEB client listening attentively to peers and providing input. Attentive and contributed to discussion as group worked on defining?self-confidence?and identifying benefits of?self-confidence, as well as factors that can effect?self-confidence?levels. Pt was an active participant in activity in which the group read and processed each right on the Personal Bill of Rights worksheet. Pt identified the rights they struggle with believing. Benefited from increased education on?self-confidence?and what effects it. Pt will continue IOP tx to increase?self-confidence, improve emotional regulation skills, and prevent decompensation.
--- NOTE | 2025-04-09 11:15 | BH.SGPN.GN ---
Behaviors/Verbalizations/Mental Status: [] Client alert and oriented, casually dressed and groomed. Eye contact good. Motor activity appropriate. Speech within normal limits. Affect congruent, mood anxious. Thoughts linear, logical, no signs of hallucinations or delusions. Client Response/Progress/Benefit: [] Pt engaged in session AEB client listening attentively to peers and providing input. Attentive and contributed to discussion as group worked on identifying thought patterns and behaviors that negatively effect self-confidence. Pt identified behaviors that effect their confidence as: self-comparing and negative self-talk. Engaged in confidence building activity and worked with the group to identify strategies for improving self-confidence. Pt identified plans to begin setting small daily self-care goals as a means of improving own self-confidence. Benefited from increased education on self-confidence building skills. Pt will continue IOP tx to increase self-confidence, improve emotional regulation skills, and prevent decompensation. Narrative Note: []
--- NOTE | 2025-04-13 09:05 | BH.SGPN.GN ---
Behaviors/Verbalizations/Mental Status: [] Eye contact is good. Motor activity is appropriate. Appearance is casual. Speech is Appropriate. Mood is euthymic. Affect is full. Thoughts are linear and logical. No evidence of psychosis. Reviewed daily check in sheet and no reports of suicidal ideations or intent. Client Response/Progress/Benefit: [] Pt was an active participant in group discussions. Attentive. Able to identify mental health wins and healthy habits. She got a haircut over the weekend and reports feeling ?refreshed?. Elaborated on the mental health benefits to putting effort into her appearance. Increased confidence. Utilizing oppositive action. Increased hope and motivation. Stressor is accidental relapse on cannabis this weekend. According to pt she purchased the ? wrong vape? and after using it realized that it was CBD and not nicotine. At that point she reports giving it to a friend. [place] guilt, shame, and embarrassed. Immediately told her mother and sample case porter. Progress noted as she is using skills and according to pt relapsed not to self-medicate or for urges but rather by accident. Benefited from group support, encouragement, and feedback. Will continue in IOP to prevent decompensation, stabilize mood, and improve functioning. Narrative Note: []
--- NOTE | 2025-04-13 09:05 | BH.SGPN.GN ---
Behaviors/Verbalizations/Mental Status: [] Eye contact is good. Motor activity is appropriate. Appearance is casual. Speech is Appropriate. Mood is euthymic. Affect is full. Thoughts are linear and logical. No evidence of psychosis. Reviewed daily check in sheet and no reports of suicidal ideations or intent. Client Response/Progress/Benefit: [] Pt was an active participant in group discussions. Attentive. Able to identify mental health wins and healthy habits. She got a haircut over the weekend and reports feeling ?refreshed?. Elaborated on the mental health benefits to putting effort into her appearance. Increased confidence. Utilizing oppositive action. Increased hope and motivation. Stressor is accidental relapse on cannabis this weekend. According to pt she purchased the ? wrong vape? and after using it realized that it was CBD and not nicotine. At that point she reports giving it to a friend. [place] guilt, shame, and embarrassed. Immediately told her mother and case management associate. Progress noted as she is using skills and according to pt relapsed not to self-medicate or for urges but rather by accident. Benefited from group support, encouragement, and feedback. Will continue in IOP to prevent decompensation, stabilize mood, and improve functioning. Narrative Note: []
--- NOTE | 2025-04-13 10:15 | BH.SGPN.GN ---
Behaviors/Verbalizations/Mental Status: []Pt alert and oriented, neatly dressed and groomed. Eye contact good. Motor activity appropriate. Speech within normal limits. Affect congruent, mood content. Thoughts linear, logical, no signs of hallucinations or delusions. Client Response/Progress/Benefit: [] Pt participated during the group discussion, providing input and remaining attentive during psychoeducation. Participated in experiential activity. Pt contributed during interactive discussion on the consequences of unhealthy expression of emotions. Worked with group to identify several consequences which included hurting relationships and isolating oneself. Contributing during interactive discussion on common potholes to effectively communicating. Pt was able to relate and make connections between the experiential activity and the overall topic, managing emotions through activity by humor and deep breathing. Benefited from increased awareness of how stress and emotions can impact one's ability to communicate. Will continue in IOP to prevent decompensation, increase emotional regulation skills, and improve daily functioning. Narrative Note: []
--- NOTE | 2025-04-13 11:15 | BH.SGPN.GN ---
Behaviors/Verbalizations/Mental Status: [] Eye contact is good. Motor activity is appropriate. Appearance is casual. Speech is Appropriate. Mood is euthymic. Affect is full. Thoughts are linear and logical. No evidence of psychosis. Client Response/Progress/Benefit: [] Client engaged in session AEB client listening attentively to peers and providing input. Attentive during psychoeducation on 4 zones of regulation. Pt able to identify feelings and behaviors for each zone. Pt identified coping skills one can use to support self in each zone. Pt stated belief that pt is in the green zone today. Pt reports that in order to stay in the green she needs to take medications, meet her basic needs, journal, and engage with positive supports today. Benefited from increased education on zones of regulation or stages of alertness for emotions and healthy coping skills to use for each zone. Pt will continue IOP tx to prevent decompensation, stabilize mood, increase healthy skills, and improve functioning. Narrative Note: []
--- NOTE | 2025-04-14 10:10 | BH.SGPN.GN ---
Behaviors/Verbalizations/Mental Status: [] Eye contact is good. Motor activity is appropriate. Appearance is casual. Speech is Appropriate. Mood is anxious. Affect is congruent. Thoughts are linear and logical. No evidence of psychosis. Client Response/Progress/Benefit: [] Pt engaged in session AEB listening attentively to others and providing input throughout. Pt engaged in activity, able to connect how it can be uncomfortable and difficult to practice acceptance when situations are out of one?s own control. Identified she is struggling with accepting that children services wants to have custody of her son. Worked with peer group to define acceptance and identify the benefits that acceptance can bring. Benefits included; reduce stuckness, reduced stress, helps one to focus on situations we can change, and decreased negative self-talk. Seemed to benefit from increased awareness of the meaning as well as the importance of acceptance. Will continue in IOP to prevent decompensation, improve emotion regulation, and challenge distortions.
--- NOTE | 2025-04-14 11:15 | BH.SGPN.GN ---
Behaviors/Verbalizations/Mental Status: []Pt alert and oriented, casually dressed and groomed. Eye contact good. Motor activity appropriate. Speech within normal limits. Affect congruent, mood anxious and dysthymic. Thoughts linear, logical, no signs of hallucinations or delusions. Client Response/Progress/Benefit: [] Pt responded well to session AEB taking notes and contributing to discussion throughout. Pt engaged as group continued discussion on acceptance and the mental health benefits of practicing acceptance. Pt and peers identified what makes acceptance challenging and pt completed a self-reflection exercise on what is hard to accept in pt's life. Pt identified something that is currently hard to accept as children's services seeking custody of her son. Client stated by not accepting this it leads to unhealthy means of coping, mood instability, and guilt. Group identified strategies to increase acceptance. Pt noted wanting to work on self-forgiveness as a strategy for improving acceptance in this area. Pt appeared to benefit from gaining insight and learning strategies to increase acceptance. Pt will continue IOP tx to improve insight, increase mood stability, and prevent decompensation. Narrative Note: []
--- NOTE | 2025-04-16 09:08 | PCM.BH.PN ---
Intake Vital Signs 03/10/25 10:06 03/21/25 00:24 04/16/25 09:10 Height 5 ft 4 in 5 ft 4 in Weight: 150 lb BP 142/92 H Pulse 74 BH Intake Visit Reasons: Anxiety Allergies No Known Allergies Allergy (Verified 03/10/25 10:02) Medications ?Medication ?Instructions ?Recorded ?Confirmed ?Type bupropion HCl 200 mg tablet,12 hr 200 mg PO BID 03/10/25 03/10/25 History sustained-release (Wellbutrin SR) cholecalciferol (vitamin D3) 25 25 mcg PO DAILY 03/10/25 03/10/25 History mcg (1,000 unit) capsule (Vitamin D3) melatonin 12 mg tablet 12 mg PO QHS PRN sleep 03/10/25 03/10/25 History venlafaxine 150 mg 150 mg PO DAILY 03/10/25 03/10/25 History capsule,extended release 24 hr (Effexor XR) hydroxyzine HCl 25 mg tablet 25 mg PO BID PRN anxiety/sleep #60 03/26/25 Rx tabs brexpiprazole 2 mg tablet (Rexulti) 2 mg PO DAILY 30 days #30 tabs 04/16/25 Rx venlafaxine 75 mg capsule,extended 75 mg PO QAM #30 caps 04/16/25 Rx release 24 hr HPI () History of Present Illness History provided by: patient Chief complaint: Anxiety HPI: Ligia Arriaga is a 34 year old female who presents today as a follow up as part of her [facility] admission. Patient reports that she relapsed on weed about 2 days ago. Has been able to go about 2 days without use but then uses again. Did create a relapse prevention plan with [facility] in an attempt to mitigate chances of relapse. Is down on herself in regards to smoking. CPS is going for temporary custody of her son, and she believes part of this is related to her substance use. Feels like mood has been improving slowly. Is set to follow with Mary her outpatient provider in the near future. Has been using hydroxyzine for sleep and anxiety and has been helping a lot. Sleeping now about 8 hours. Denies SI/HI or AVH. Developmental History Developmental History: LIGIA is the [ ORDER]. The pt was born and raised in [ ]. Education level completed [ ]. Pt describes his/her childhood as [ ]. Review of systems () Constitutional Denies: fever(s), chills, change in weight or fatigue Eyes Denies: change in vision or blurry vision Ears, Nose, Mouth, Throat Denies: throat pain, neck pain or change in hearing Cardiovascular Denies: chest pain, palpitations or dyspnea Respiratory Denies: dyspnea, cough or wheezing Gastrointestinal Denies: abdominal pain, nausea, vomiting, diarrhea or constipation Genitourinary Denies: dysuria or urinary frequency Musculoskeletal Denies: back pain, neck pain, joint pain or muscle weakness Integumentary/Breast Denies: rash or new lesions Neurological Denies: headache(s), dizziness or confusion Endocrine Denies: fatigue or excessive sweating Hematologic/Lymphatic Denies: easy bruising or easy bleeding Allergic/Immunologic Denies: wheezing Exam Mental Status Exam- Psych () Appearance casually dressed and no apparent distress Attitude cooperative and calm Activity/Motor Behavior MSE activity/motor behavior finding no adventitious movements Speech regular rate, regular volume and regular prosody Mood anxious Affect congruent Thought Process linear, logical and coherent Thought Content no delusions and no hallucinations Suicidal Ideation none Homicidal Ideation none Attention intact Concentration intact Sensorium/Orientation awake, alert and oriented x3 Memory/Cognition other (appropriate for stated age) Insight fair Judgement fair Assessment & Plan () Assessment & Plan (1) Generalized anxiety disorder: Plan: - We will increase venlafaxine to 225 mg every day - Patient was informed about the risk, benefits and possible side effects of SNRI type medications. These side effects include but are not limited to nausea, diarrhea, headache, increased bleeding risk, and sexual dysfunction. SNRI medications are not to be discontinued abruptly as these can worsen side effects of medication. Please contact office prior to discontinuing these medications for discontinuation instructions. - Continue on Wellbutrin - Can continue to use hydroxyzine (2) Major depressive disorder, recurrent severe without psychotic features: Plan: - See above (3) Cannabis use disorder: Plan: - Encouraged to consider N-acetylcysteine [id number] to help with cannabis cravings (4) Methamphetamine use disorder, mild, in sustained remission: Plan: - Sober from methamphetamines at this time (5) Attention deficit disorder: Plan: - Using Wellbutrin (6) PTSD (post-traumatic stress disorder): Plan: - See above Charges/Coding Multi Select Codes Behavior Health Behavior Health EST Pt E/M: 51392 Est Pt Level IV
--- NOTE | 2025-04-16 10:10 | BH.SGPN.GN ---
Behaviors/Verbalizations/Mental Status: [] Eye contact is fair. Motor activity is appropriate. Appearance is casual. Speech is Appropriate. Mood is dysthymic. Affect is congruent. Thoughts are linear and logical. No evidence of psychosis. Client Response/Progress/Benefit: [] Pt semi engaged participant AEB listening to others, engaging in activity, and providing feedback at times. Attentive during psychoeducation that provided insight into obstacles that impede mental wellness. Pt shared with group current mental health reality and desired mental health reality. Identified barriers to desired reality include: Substance use, fair for, and isolation. Benefited from taking look at current mental health state and obstacles for progress. Pt to continue IOP tx to improve mood stability, maintain sobriety, and prevent decompensation.
--- NOTE | 2025-04-16 11:10 | BH.SGPN.GN ---
Behaviors/Verbalizations/Mental Status: [] Eye contact is good. Motor activity is appropriate. Appearance is casual. Speech is Appropriate. Mood is euthymic. Affect is congruent. Thoughts are linear and logical. No evidence of psychosis. Client Response/Progress/Benefit: [] Pt was an engaged participant in group discussion and activity. Worked with group to identify strategies to help overcome barriers and obstacles to desired reality. Group developed strategies for the common barriers. Identified personal barriers to desired reality and choose one obstacle to work on. Pt stated wanting to work on barrier of no motivation by starting small and practicing opposite action. Pt seemed to benefit from increased repertoire of healthy coping skills/strategies to overcome common barriers to moving forward. Pt is to continue IOP increase functioning, decrease negative self-talk, and prevent decompensation. Narrative Note: []
--- NOTE | 2025-04-16 12:12 | BH.MDN ---
Multi-Disciplinary Note Note 30-min Individual: Time Started:: 09:10 Date: 04/16/24 Purpose of session/treatment goals addressed:: Purpose of session was to address goals 1 and 2 from MTP. Eye Contact:: Fair Motor Activity:: Appropriate Appearance:: Casual Speech:: Appropriate Mood:: Anxious and Depressed Affect:: Constricted Thoughts:: Linear, Logical and No evidence of hallucinations/delusions noted Staff Interventions:: thought challenging, motivational interviewing, CBT techniques, strengths perspective, taught coping skills and other (Relapse prevention plan) Client Response:: Client reported she is struggling more today because she was sanctioned by court due to testing positive for marijuana. Client stated she accidentally bought the wrong baby pen at a store and did not realize that she had by a THC vape until after using it. Client stated she tried to explain to her sobriety court team what happened but noted that they do not believe her and so this results in a sanction. Client stated her consequences she needs to complete a writing assignment about what led to the relapse and what she can do differently. Therapist and client work together to complete relapse prevention plan. Relapse prevention plan reviewed the stages of relapse which include emotional relapse, mental relapse, and physical relapse. Client worked with therapist to create a self-care plan to help manage emotional relapse. Therapist provided psychoeducation about techniques for dealing with mental cravings like playing the tape through, reaching out to somebody that is helpful, and distracting herself. Therapist also inquired of client has found going to AA or NA meetings to be helpful. Client stated she still needs to find a new sponsor and reports that she does attend 1 meeting a week. Therapist encouraged client on days in which she finds herself with increased cravings to attend a meeting. In the relapse prevention plan discussed who she could reach out to when she does have a relapse to let people know that she needs help to prevent further relapse. Client had identified a friend and her mom as potential people she could reach out to. Client provided the relapse plan and encouraged to hang this up in a place that she can see visibly. Risks/Concerns:: Denies suicide ideation, plan, intention. Progress Toward Goals/Plan:: Decompensation noted with client reporting accidental use of marijuana. Client noted recovery court is aware of the recent relapse. Prior to this relapse client had been doing well with reporting maintaining sobriety and showing improved involvement in activities she enjoys. Client and therapist worked together to create relapse prevention plan. Plan is for client to challenge negative thoughts, maintain sobriety, and prevent decompensation. Time Stopped:: 09:45
== END 2025-04-19 23:59 ==
LOC: BHIOP 07:28
PROVIDERS: PCP Preventive Medicine Occupational Medicine; Referring Provider Psychiatry & Neurology Psychiatry; Visit Provider Psychiatry & Neurology Psychiatry
DX: F33.2 Major depressive disorder, recurrent severe without psychotic features (principal); F41.1 Generalized anxiety disorder; F43.10 Post-traumatic stress disorder, unspecified; F90.1 Attention-deficit hyperactivity disorder, predominantly hyperactive type; F15.91 Other stimulant use, unspecified, in remission; F12.91 Cannabis use, unspecified, in remission
CPT/HCPCS: H2012; H2020; S9480; 90832; 90834

== ENCOUNTER 2025-04-20 07:14 | Outpatient (RCR) | payer MEDICAID, SELFPAY ==
--- NOTE | 2025-04-21 10:10 | BH.SGPN.GN ---
Behaviors/Verbalizations/Mental Status: [] Client alert and oriented, casually dressed and groomed. Eye contact good. Motor activity appropriate. Speech within normal limits. Affect congruent, mood anxious. Thoughts linear, logical, no signs of hallucinations or delusions. Client Response/Progress/Benefit: [] Pt engaged in session AEB client listening attentively to peers and providing input. Attentive and contributed to discussion as group worked on defining self-forgiveness and identifying mental health benefit. Identified benefits as: reduce guilt/shame, increase self-confidence, decrease negative self-talk, healthier relationships, ect. ?Worked in small groups to identify factors that can make self-forgiveness difficult. Pt identified a personal barrier to self-forgiveness. Benefited from increased education on self-forgiveness, benefits, and what effects it. Pt will continue IOP tx to increase use of healthy coping skill, challenge negative thoughts, and prevent decompensation.
--- NOTE | 2025-04-21 10:43 | BH.MDN ---
Multi-Disciplinary Note Note 30-min Individual: Time Started:: 09:15 Date: 04/21/25 Purpose of session/treatment goals addressed:: Purpose of session was to address goals 1 and 2 from MTP. Eye Contact:: Fair Motor Activity:: Slowed Appearance:: Disheveled Speech:: Soft Mood:: Depressed Affect:: Constricted Thoughts:: Linear, Logical and No evidence of hallucinations/delusions noted Staff Interventions:: thought challenging, motivational interviewing, CBT techniques, strengths perspective, goal setting and taught coping skills Client Response:: Client reported she is struggling today due to feeling embarrassed while at recovery [place] and comments her boyfriend made to her about her needing to stop smoking marijuana. Client shared in recovery court on Saturday the lay out technician made the recommendation that client should go to a 60-day rehab for marijuana use. Client reported she is not required to go to rehab at this point but it strongly recommended. Client stated she has not had any interest or does not believe she needs to go to a 60-day rehab at this time. Client stated she was recommended rehab because she has been relapsing more than she has indicated to IOP therapist. Client stated she relapsed with marijuana since last week and through the weekend with her last use being on Saturday. Client stated since starting IOP the longest she has been sober is 3 days. Client stated she believes if she can get 5 days sober the urges will be more manageable. Therapist reviewed relapse prevention plan ideas. Client stated today her plan is to focus and engage in IOP group sessions, potentially go to the library, and reach out to her mom for sober support. Client responded well to therapist helping client which challenge some of her negative thought patterns about herself. Client stated she has been having thoughts that she is a bad mom. Client recognizes this kind of thinking will threaten her sobriety because it would likely trigger out other negative thought patterns. Client's plan for today is to focus on utilizing opposite action, engaging in activities that can provide a healthy distraction, and challenge negative thought patterns. Risks/Concerns:: Denies suicidal ideation, plan, intention. Progress Toward Goals/Plan:: Decompensation noted as evidenced by client reporting that she has been relapsing with marijuana on a more frequent basis than she has communicated to IOP team. Throughout IOP client reported she is then sober for the longest span of 3 days. Client did not utilize relapse prevention plan that was created in last individual session. Client having significant difficulty with managing her urges despite review of healthy coping skills and strategies to manage her urges. Client stated recovery court is aware of her marijuana use and at this time is recommending rehab. Client stated at this time she does not want to go to rehab because she does not believe it is necessary. Plan is for client to continue IOP to improve ability to manage marijuana urges, challenge distortions, and prevent decompensation. Time Stopped:: 09:40
--- NOTE | 2025-04-21 11:15 | BH.SGPN.GN ---
Behaviors/Verbalizations/Mental Status: [] Client alert and oriented, casually dressed and groomed. Eye contact fair to good. Motor activity appropriate. Speech within normal limits. Affect congruent, mood depressed. Thoughts linear, logical, no signs of hallucinations or delusions. Client Response/Progress/Benefit: [] Pt engaged in session AEB client listening attentively to peers and providing input. Attentive during psychoeducation on the 4 R?s of Self-Forgiveness (Responsibility, Remorse, Pentecostal, Renewal). Contributed to discussion as group worked on identifying strategies for improving ability to practice self-forgiveness. Reports wanting to practice thought challenging and focusing on what's in her control. Engaged in self-forgiveness activity and benefited from increased education on self-forgiveness building skills. Pt will continue IOP tx to improve mood stability, increase healthy coping repertoire, and prevent decompensation. Narrative Note: []
--- NOTE | 2025-04-22 09:05 | BH.SGPN.GN ---
Behaviors/Verbalizations/Mental Status: [] Eye contact is good. Motor activity is appropriate. Appearance is casual. Speech is Appropriate. Mood is anxious. Affect is congruent. Thoughts are linear and logical. No evidence of psychosis. Reviewed daily check in sheet and no reports of suicidal ideations or intent. Client Response/Progress/Benefit: [] Pt was an active participant in group discussion. Attentive. Daily symptom tracker notes 02/22 for anxiety. Shared that she has not smoked cannabis is 4 days. Elaborated on strategies that have been helpful to alleviate urges and manage loneliness/depression which are triggers to use. Identified areas in her life which provide purpose and ?something to get up for?. Continues to have significant stressors and guilt mainly around being away from her kids. Overwhelmed. Progress noted. Benefited from group support, encouragement, and feedback. Will continue in IOP to prevent decompensation, increase healthy coping, and improve functioning. Narrative Note: []
--- NOTE | 2025-04-22 10:10 | BH.SGPN.GN ---
Behaviors/Verbalizations/Mental Status: [] Eye contact is good. Motor activity is appropriate. Appearance is casual. Speech is Appropriate. Mood is dysthymic and irritable. Affect is congruent. Thoughts are linear and logical. No evidence of psychosis. Client Response/Progress/Benefit: [] Pt receptive to session AEB listening attentively to others and taking notes. Pt attentive and contributed throughout psychoeducation on the cognitive triangle and maintenance cycles. Pt engaged during group discussion reviewing the impact of daily activities and behaviors in either reinforcing unhealthy maintenance cycles and depression or assisting in reducing symptoms (?down? vs ?up? activities). Pt participated during interactive discussion in which pts identified their own common up activities (shower, dancing, body movement, pets) and down activities (isolation, avoidance, sad music, not taking meds).Identified an up activities she can complete today which was hangout with kids. Appeared to benefit from increased awareness of current behaviors and impact these have on mental health. Will continue IOP to prevent decompensation, increase healthy coping, and improve functioning. Narrative Note: []
--- NOTE | 2025-04-22 10:10 | BH.SGPN.GN ---
Behaviors/Verbalizations/Mental Status: []Eye contact is good. Motor activity is appropriate. Appearance is casual. Speech is Appropriate. Mood is anxious. Affect is congruent. Thoughts are linear and logical. No evidence of psychosis. Client Response/Progress/Benefit: [] Pt receptive to session AEB listening attentively to others and taking notes. Pt attentive and contributed throughout psychoeducation on the cognitive triangle and maintenance cycles. Pt engaged during group discussion reviewing the impact of daily activities and behaviors in either reinforcing unhealthy maintenance cycles and depression or assisting in reducing symptoms (?down? vs ?up? activities). Pt participated during interactive discussion in which pt identified their own common up activities (hanging out with kid, video games, reading, and watching movies) and down activities (isolating, stay in bed, sleeping to avoid, and not completing chores). Appeared to benefit from increased awareness of current behaviors and impact these have on mental health. Will continue IOP to prevent decompensation, improve emotion regulation, and increase coping.
--- NOTE | 2025-04-29 09:00 | BH.SGPN.GN ---
Behaviors/Verbalizations/Mental Status: [] Eye contact is poor. Motor activity is appropriate. Appearance is casual. Speech is Appropriate. Mood is depressed. Affect is flat. Thoughts are linear and logical. No evidence of psychosis. Reviewed daily check in sheet and pt reports 2/5 for suicidal thoughts and 2/5 for intent. Therapist notified, Staff observation. Client Response/Progress/Benefit: [] Pt participated when prompted. Distracted today. Daily symptom tracker notes 5/5 for depression and irritability. Shared with the group continued struggles to maintain sobriety from cannabis. She is linked with children services and the treatment there is recommending residential. Pt wants to get custody back of her children however feels that residential would not be helpful. Constantly ruminating. Increase stress, depression, guilt, regret, and remorse over her actions. She believes that she used cannabis to cope with the loneliness of not having her children. Regression. Benefited from group support, encouragement, and feedback. Will continue in IOP to maintain safety, prevent decompensation, and increase healthy coping. Narrative Note: []
--- NOTE | 2025-04-29 11:10 | BH.SGPN.GN ---
Behaviors/Verbalizations/Mental Status: []Pt alert and oriented, casually dressed and groomed. Eye contact good. Motor activity appropriate. Speech within normal limits. Affect congruent, mood depressed. Thoughts linear, logical, no signs of hallucinations or delusions. Client Response/Progress/Benefit: [] Pt was an active participant, engaged in activities and discussion. Pt able to identify ways they negatively contribute to crucial conversations and pt was engaged during psychoeducation of the different ways to build interpersonal effectiveness skills. Pt and peers practiced mirroring and active listening in partners. Group reviewed [employer] and used the handout to help map out how they would like a crucial conversation in their life to go. Pt identified talking to the mental health court about going to rehab ?without getting too? angry?. Pt appeared to benefit from learning and practicing interpersonal effectiveness skills. Pt will continue IOP tx to reduce avoidance behaviors, increase distress tolerance, and improve daily functioning. ? Narrative Note: []
--- NOTE | 2025-04-29 14:25 | BH.MDN ---
Multi-Disciplinary Note Note 30-min Individual: Time Started:: 10:20 Date: 04/29/25 Purpose of session/treatment goals addressed:: Purpose of session was to address goals 1 and 2 from MTP. Eye Contact:: Fair Motor Activity:: Slowed Appearance:: Disheveled Speech:: Soft Mood:: Depressed Affect:: Constricted Thoughts:: Logical and No evidence of hallucinations/delusions noted Staff Interventions:: thought challenging, motivational interviewing, CBT techniques, strengths perspective and goal setting Client Response:: Client reported she has been struggling with increased depression the last few days because of recovery court wanting her to go to residential treatment. Client stated she has been sober since last Saturday. Client stated she doesn't believe residential will be helpful for her. Client stated if she goes to residential she could be gone for 30 to 60 days and not be able to have her in person visitations with her children. Client stated she does not believe this would be good for her own mental health or her connection with her kids. Client stated the last 2 days she has been laying around and crying on the couch. Client reported she is worried if she chooses to not go to residential treatment because that is the recommendation by the recovery court then she will be kicked out of recovery court. Client stated she does not know the impact it could have on her visitation and ability to get her son back. Client reported previously she has been involved in recovery court and completed the program so is unfamiliar with how things would go when she is not involved. Client worked with therapist to look at both sides of the decision in regards to potential positives and negatives of going to residential then looked at the positive negatives of choosing to not go to the residential. Therapist gently challenged client that she hasn't been able to maintain consistent sobriety while living at home since she's starting IOP. Client adamant that being in a residential facility will make her worse. Risks/Concerns:: Denies suicidal ideation, plan, or intention to date. Progress Toward Goals/Plan:: Progress limited. Client struggling with decision on whether she should agree with recovery court to go to a residential facility to help her with her marijuana use. Client is worried being away from her kids for that long will negatively impact her mental health and connection with her kids. Client recognizes she can have phone calls with her kids, but doesn't see it the same because she won't be able to see them in person. Therapist attempted to help client with the strategy of playing the tape forward for each decision. Plan is for client to continue IOP to maintain sobriety, increase consistent use of healthy coping skills, and prevent decompensation. Time Stopped:: 10:50
--- NOTE | 2025-04-29 14:25 | BH.MDN_ITS ---
Multi-Disciplinary Note Note 30-min Individual: Time Started:: 10:20 Date: 04/29/25 Time Stopped:: 10:50
--- NOTE | 2025-04-29 14:25 | BH.MDN_ITS ---
Multi-Disciplinary Note Note 30-min Individual: Time Started:: 10:20 Date: 04/29/25 Time Stopped:: 10:50
--- NOTE | 2025-04-30 09:05 | BH.SGPN.GN ---
Behaviors/Verbalizations/Mental Status: [] Eye contact is good. Motor activity is appropriate. Appearance is casual. Speech is Appropriate. Mood is irritable. Affect is congruent. Thoughts are linear and logical. No evidence of psychosis. Reviewed daily check in sheet and no reports of suicidal ideations or intent. Client Response/Progress/Benefit: [] Pt was an active participant in group discussions. Attentive. Daily symptom tracker notes 1/5 for depression and self-harm urges as well as 2/5 for agitation. Reports improved mood from yesterday. ? I don?t feel as down in the dumps?. Getting to IOP yesterday proved to be beneficial. According to pt the support and ?social aspect? of IOP helps her ? feel no so alone?. With increased stress and depression her urges to self-medicate with cannabis have increase as well, however she didn?t smoke yesterday. Progress has been inconsistent due to stressors related to sobriety and expectations from children services. Benefited from group support, encouragement, and feedback. Will continue in IOP to prevent decompensation, increase healthy coping, and improve functioning Narrative Note: []
--- NOTE | 2025-04-30 11:15 | BH.SGPN.GN ---
Behaviors/Verbalizations/Mental Status: []Pt alert and oriented, casually dressed and groomed. Eye contact good. Motor activity appropriate. Speech within normal limits. Affect congruent, mood depressed. Thoughts linear, logical, no signs of hallucinations or delusions. Client Response/Progress/Benefit: [] Pt responded well to session, engaged and contributing. Pt discussed with group things that contribute to mental wellness life. With peers, pt discussed things that would sabotage one's mental health wellness. Pt identified things pt personally does to sabotage as avoidance, substance use, and poor boundaries. Pt attentive during psychoeducation on ways to reduce self-sabotage and pt selected using reaching out to healthy supports as the skill that could help pt reduce self-sabotaging behaviors. Pt appeared to benefit from learning skills and gaining awareness of self-sabotaging behaviors. Pt will continue IOP tx to prevent decompensation, improve distress tolerance skills, and combat negative self-talk. Narrative Note: []
--- NOTE | 2025-04-30 15:00 | BH.SGPN.GN ---
Behaviors/Verbalizations/Mental Status: [] Pt alert and oriented, casually dressed and groomed. Eye contact good. Motor activity appropriate. Speech within normal limits. Mood: depressed. Affect: congruent. Thoughts linear, logical, no signs of hallucinations or delusions. Client Response/Progress/Benefit: [] Pt was an active participate during group discussions. Attentive during psychoeducation on self-sabotage and its impact on mental health. Worked with peers to identify reasons individuals perform self-sabotage behaviors (fear of rejection, learned behavior, coping mechanism, fear of failure, insecurity, and feeling like they are not worthy). Pt identified the forms of self-sabotage that impact their mental health the most which included (isolation, perfectionism, lashing out, procrastination, poor communication and people-pleasing). Seemed to benefit from gaining awareness about the self-sabotage. Pt to continue IOP tx to prevent decompensation, increase healthy coping, and improve functioning. Narrative Note: []
--- NOTE | 2025-05-05 10:00 | BH.SGPN.GN ---
Behaviors/Verbalizations/Mental Status: []Eye contact is good. Motor activity is appropriate. Appearance is casual. Speech is Appropriate. Mood is anxious and depressed. Affect is congruent. Thoughts are linear and logical. No evidence of psychosis. Client Response/Progress/Benefit: [] Pt was an active participant in group discussions. Attentive during psychoeducation. Contributed during interactive discussions in which peers attempted to define crisis. Group identified crisis examples. Group also worked together to identify warning signs and unhealthy responses to crisis which included shutting down, isolation, avoidance, over-thinking, disordered eating, and self-harm. Pt identified top 3 warning signs as: negative thoughts, numbing with substances, and lashing out. Benefited from increased understanding of crisis and awareness of personal responses to crisis. Pt will continue IOP tx to promote mood stability, reduce negative thinking patterns, and increase distress tolerance. Narrative Note: []
--- NOTE | 2025-05-05 11:10 | BH.SGPN.GN ---
Behaviors/Verbalizations/Mental Status: []Pt alert and oriented, fair grooming/appearance. Eye contact fair. Motor activity appropriate. Speech within normal limits. Affect constricted, mood depressed. Thoughts linear, logical, no signs of hallucinations or delusions. Client Response/Progress/Benefit: []Pt was an active participant in group discussions. Attentive during psychoeducation. In small group pt along with peers developed an active plan for their crisis warning signs. Pt identified three crisis warning signs as well as an action plan for each. One crisis warning sign was isolation. Pt identified strategies to help with this such as: Regional to a trusted support, engaging in self-care, attending Bible study, and going to faith. Benefited from increased awareness of crisis warning signs and by developing crisis intervention strategies. Will continue in IOP to improve distress tolerance, challenge distortions, and prevent decompensation.
--- NOTE | 2025-05-05 11:10 | BH.SGPN.GN ---
Behaviors/Verbalizations/Mental Status: []Pt alert and oriented, fair grooming/appearance. Eye contact fair. Motor activity appropriate. Speech within normal limits. Affect constricted, mood depressed. Thoughts linear, logical, no signs of hallucinations or delusions. Client Response/Progress/Benefit: []Pt was an active participant in group discussions. Attentive during psychoeducation. In small group pt along with peers developed an active plan for their crisis warning signs. Pt identified three crisis warning signs as well as an action plan for each. One crisis warning sign was isolation. Pt identified strategies to help with this such as: Regional to a trusted support, engaging in self-care, attending Bible study, and going to sabianist. Benefited from increased awareness of crisis warning signs and by developing crisis intervention strategies. Will continue in IOP to improve distress tolerance, challenge distortions, and prevent decompensation.
--- NOTE | 2025-05-05 14:26 | BH.MDN ---
Multi-Disciplinary Note Note 30-min Individual: Time Started:: 09:00 Date: 05/05/25 Purpose of session/treatment goals addressed:: Purpose of session was to address goals 1 and 2 from MTP. Eye Contact:: Fair Motor Activity:: Slowed Appearance:: Disheveled Speech:: Soft Mood:: Depressed Affect:: Flat Thoughts:: Logical and No evidence of hallucinations/delusions noted Staff Interventions:: thought challenging, CBT techniques, strengths perspective and goal setting Client Response:: Client reported today she chose to not go to the 30-day residential treatment facility that was recommended by recovery court yesterday. Client reported she chose to not go because she does not feel like it is the right thing to do and from her perspective does not see it as necessary nor helpful. Client tearful throughout session because in one hand she stated feeling happy with her choice on the other hand feeling sad and anxious because the professionals in her life that been helping her are upset with her decision. Client expressed concern and anxiety that because she did not go to residential treatment [facility] will not let her have her kids back. Client reports she does not have any evidence to support the thought that she will not be go to work towards getting custody of her son. Client stated she would likely get removed from recovery courts and she has not gone through with the recommendation of residential treatment. Client receptive to thought challenged by therapist and looking at the fact that situation. Client stated if she knew she would not get her son back if she did not go to residential treatment and she would have went even if she did not think it be helpful. Client stated she has no evidence or indication that would support she must do what recovery court states. Client reported she is anxious about how things will change if she gets removed from recovery court. Therapist helped client process her thoughts and feelings about turning down residential. Client and therapist discussed small goals client can focus on today to prevent mental health decline and prevent further relapse. Risks/Concerns:: Denies suicidal ideation, plan, or intention to date. Progress Toward Goals/Plan:: Progress limited. Client has chosen to not go to residential treatment for her marijuana use. Client stated she did relapse Saturday evening after court when she thought she was going to residential. Client reported part of her is okay with her decision and another part of her is worried if she made the right choice. Client mostly fearful that not going to residential will decrease her chances of getting custody back of her son. Plan is for client to discharge from [facility] this Saturday. Time Stopped:: 09:30
--- NOTE | 2025-05-06 09:00 | BH.SGPN.GN ---
Behaviors/Verbalizations/Mental Status: [] Client alert and oriented, casual appearance. Eye contact good. Motor activity appropriate. Speech within normal limits. Affect congruent, mood anxious. Thoughts linear, logical, no signs of hallucinations or delusions. Reviewed client's symptom tracker, no risk for suicidal ideation, plan, or intent. Client Response/Progress/Benefit: [] Client responded well to session AEB listening to others and sharing thoughts/feelings. Client reported mental positive as surviving yesterday's intense emotions. Client stated additional length of positive as being able to refrain from smoking marijuana which is something she has been trying to maintain sobriety from as a condition of recovery court and condition to get her child back. Client stated the stressor is the unknown of what will happen with her case since she denied the recovery court recommendation of going to a residential treatment facility. Appeared to benefit from support from peers. Will continue IOP tx to improve mood regulation, challenge distortions, and prevent decompensation. Narrative Note: []
--- NOTE | 2025-05-06 10:10 | BH.SGPN.GN ---
Behaviors/Verbalizations/Mental Status: [] Client alert and oriented, casually dressed and groomed. Eye contact good. Motor activity appropriate. Speech within normal limits. Affect congruent, mood euthymic. Thoughts linear, logical, no signs of hallucinations or delusions. Client Response/Progress/Benefit: [] Client was an active participant in activity and taking notes during group discussion. Attentive during psychoeducation on coping skills, why people use unhealthy coping skills, and how to replace unhealthy coping skills. Client shared unhealthy past coping skill she used in the past being drugs. Benefited from increased understanding of unhealthy coping skills and the need for developing healthy internal and external coping skills. Client will continue IOP tx to prevent decompensation, increase boundary setting, and improve daily functioning. Narrative Note: []
--- NOTE | 2025-05-06 11:10 | BH.SGPN.GN ---
Behaviors/Verbalizations/Mental Status: [] Client alert and oriented, casually dressed and groomed. Eye contact good. Motor activity appropriate. Speech within normal limits. Affect congruent, mood euthymic. Thoughts linear, logical, no signs of hallucinations or delusions. Client Response/Progress/Benefit: [] Client responded well to session AEB taking notes and providing some input and examples throughout. Group discussed the different categories of coping skills which included distraction, emotional release, grounding, self-love, and thought challenging. Client created a coping skill menu identifying various skills to try in each category. Client?s coping skill menu included: reading, forgiveness, place fet on ground, mindful showers and utilizing DEAR [employer]. Appeared to benefit from increasing repertoire of healthy coping skills. Client will continue IOP tx to improve daily functioning, reduce negative thinking, and increase emotional regulation skills. Narrative Note: []
--- NOTE | 2025-05-07 07:59 | PCM.BH.PN ---
Intake Vital Signs 04/16/25 09:10 05/07/25 08:00 Height 5 ft 4 in 5 ft 4 in Intake Visit Reasons: Anxiety Allergies No Known Allergies Allergy (Verified 03/10/25 10:02) Medications ?Medication ?Instructions ?Recorded ?Confirmed ?Type cholecalciferol (vitamin D3) 25 25 mcg PO DAILY 03/10/25 03/10/25 History mcg (1,000 unit) capsule (Vitamin D3) melatonin 12 mg tablet 12 mg PO QHS PRN sleep 03/10/25 03/10/25 History venlafaxine 150 mg 150 mg PO DAILY 03/10/25 03/10/25 History capsule,extended release 24 hr (Effexor XR) hydroxyzine HCl 25 mg tablet 25 mg PO BID PRN anxiety/sleep #60 03/26/25 Rx tabs brexpiprazole 2 mg tablet (Rexulti) 2 mg PO DAILY 30 days #30 tabs 04/16/25 Rx bupropion HCl 200 mg tablet,12 hr 200 mg PO BID 30 days #60 ea 04/29/25 Rx sustained-release (Wellbutrin SR) HPI () History of Present Illness History provided by: patient Chief complaint: Anxiety HPI: Ligia Arriaga is a 35 year old female who presents today as a follow up as part of her [facility] admission. Feels like she has noticed any improvement since increasing to 225 mg of venlafaxine. Almost feels like she was feeling more depressed and has returned to taking 150 mg every day. Was having worse thoughts on higher dose. Has been recommended to go to residential treatment for substance use and will likely be terminated from recovery court and will not have their help in getting custody of her child back as she does not plan on going. Has not smoked in 2-3 days. Around this time usually does tend to relapse. Feeling somewhat discouraged in this regard. Review of systems () Constitutional Denies: fever(s), chills, change in weight or fatigue Eyes Denies: change in vision or blurry vision Ears, Nose, Mouth, Throat Denies: throat pain, neck pain or change in hearing Cardiovascular Denies: chest pain, palpitations or dyspnea Respiratory Denies: dyspnea, cough or wheezing Gastrointestinal Denies: abdominal pain, nausea, vomiting, diarrhea or constipation Genitourinary Denies: dysuria or urinary frequency Musculoskeletal Denies: back pain, neck pain, joint pain or muscle weakness Integumentary/Breast Denies: rash or new lesions Neurological Denies: headache(s), dizziness or confusion Endocrine Denies: fatigue or excessive sweating Hematologic/Lymphatic Denies: easy bruising or easy bleeding Allergic/Immunologic Denies: wheezing Exam Mental Status Exam- Psych () Appearance casually dressed and no apparent distress Attitude cooperative and calm Activity/Motor Behavior MSE activity/motor behavior finding no adventitious movements Speech regular rate, regular volume and regular prosody Mood depressed Affect congruent Thought Process linear, logical and coherent Thought Content no delusions and no hallucinations Suicidal Ideation none Homicidal Ideation none Attention intact Concentration intact Sensorium/Orientation awake, alert and oriented x3 Memory/Cognition other (appropriate for stated age) Insight fair Judgement fair Assessment & Plan () Assessment & Plan (1) Generalized anxiety disorder: Plan: - Couldn't tolerate increased dose of venlafaxine, has returned to 150 mg; will follow up with her outpatient provider for additional med changes - Patient was informed about the risk, benefits and possible side effects of SNRI type medications. These side effects include but are not limited to nausea, diarrhea, headache, increased bleeding risk, and sexual dysfunction. SNRI medications are not to be discontinued abruptly as these can worsen side effects of medication. Please contact office prior to discontinuing these medications for discontinuation instructions. - Continue on Wellbutrin - Can continue to use hydroxyzine (2) Major depressive disorder, recurrent severe without psychotic features: Plan: - See above (3) Cannabis use disorder: Plan: - Encouraged to consider N-acetylcysteine [id number] to help with cannabis cravings (4) Methamphetamine use disorder, mild, in sustained remission: Plan: - Sober from methamphetamines at this time (5) Attention deficit disorder: Plan: - Using Wellbutrin (6) PTSD (post-traumatic stress disorder): Plan: - See above Medications: Changed From bupropion HCl SR 200 mg PO BID To bupropion HCl SR 200 mg PO BID 30 days 60 ea 0RF Discontinued venlafaxine ER To be taken with 150 mg capsule for total daily dose of 225 mg Discontinued Reason: Pt no longer taking 75 mg PO QAM 30 caps 2RF Charges/Coding Multi Select Codes Behavior Health Behavior Health EST Pt E/M: 73466 Est Pt Level IV
--- NOTE | 2025-05-07 09:05 | BH.SGPN.GN ---
Behaviors/Verbalizations/Mental Status: [] Eye contact is good. Motor activity is appropriate. Appearance is casual. Speech is Appropriate. Mood is euthymic. Affect is full. Thoughts are linear and logical. No evidence of psychosis. Reviewed daily check in sheet and no reports of suicidal ideations or intent. Client Response/Progress/Benefit: [] ?Pt was an active participant in group discussions. Attentive. Daily symptom tracker notes limited distress, however she is currently going through significant psychosocial stressors. Shared with the group that today is her last day in [facility]. According to pt she is ?getting kicked out of recovery court? due to refusing to enter residential for her cannabis use. She is visiting with her kids this weekend which she is looking forward too, however she is uncertain if she will ever regain custody. Overall her mental health has improved in [facility]???I?m feeling more hopeful?. At this point her struggles with sobriety from cannabis are the main concern for children services and according to pt they are expecting her to be completely sober. Overall progress noted in [facility]. Benefited from group support, encouragement, and feedback. Will be discharged from [facility] today. Narrative Note: []
--- NOTE | 2025-05-07 09:05 | BH.SGPN.GN ---
Behaviors/Verbalizations/Mental Status: [] Eye contact is good. Motor activity is appropriate. Appearance is casual. Speech is Appropriate. Mood is euthymic. Affect is full. Thoughts are linear and logical. No evidence of psychosis. Reviewed daily check in sheet and no reports of suicidal ideations or intent. Client Response/Progress/Benefit: [] ?Pt was an active participant in group discussions. Attentive. Daily symptom tracker notes limited distress, however she is currently going through significant psychosocial stressors. Shared with the group that today is her last day in [facility]. According to pt she is ?getting kicked out of recovery court? due to refusing to enter residential for her cannabis use. She is visiting with her kids this weekend which she is looking forward too, however she is uncertain if she will ever regain custody. Overall her mental health has improved in [facility]???I?m feeling more hopeful?. At this point her struggles with sobriety from cannabis are the main concern for children services and according to pt they are expecting her to be completely sober. Overall progress noted in [facility]. Benefited from group support, encouragement, and feedback. Will be discharged from [facility] today. Narrative Note: []
--- NOTE | 2025-05-07 10:15 | BH.SGPN.GN ---
Behaviors/Verbalizations/Mental Status: []Pt alert and oriented, neatly dressed and groomed. Eye contact good. Motor activity appropriate. Speech within normal limits. Affect congruent, mood anxious. Thoughts linear, logical, no signs of hallucinations or delusions. Client Response/Progress/Benefit: [] Pt participated during small group discussions. Attentive during psychoeducation about defense mechanisms. Showed engagement during small group discussions and helped group identify which defense mechanisms were maladaptive, adaptive, or ?somewhere in the duong.? Pt worked with small group on identifying how each defense mechanism can impact mental health and gave examples. Pt stated she has gained awareness of her use of suppression, projection, denial, and displacement. Pt reported benefits from identifying examples of different defense mechanisms and normalizing why they are used. Seemed to benefit from gaining awareness about the different defense mechanisms. Pt will discharge from IOP tx as pt has reached maximum benefit from IOP level of care and no longer meets criteria for IOP. ? Narrative Note: []
--- NOTE | 2025-05-07 13:27 | BH.MDN ---
Multi-Disciplinary Note Note 30-min Individual: Time Started:: 11:20 Date: 05/07/25 Purpose of session/treatment goals addressed:: Purpose of session was to review treatment progress, complete maintenance plan, and solidify aftercare. Eye Contact:: Good Motor Activity:: Appropriate Appearance:: Casual Speech:: Appropriate Mood:: Euthymic and Anxious Affect:: Full Thoughts:: Linear, Logical and No evidence of hallucinations/delusions noted Staff Interventions:: discharge planning, strengths perspective and other (maintenance plan) Client Response:: Client reported feeling much better today and more confident about her decision to not go to residential treatment earlier this week. Client stated she does feel like she will be able to manage her sobriety from marijuana without having to go to residential treatment. Client reported she has been trying to focus on what's within her control. Client worked with therapist to complete her maintenance plan in which client identified possible triggers that could bring back mental health struggle, warning signs, self-care activities, and coping skills. Client identified opposite action, challenging negative thoughts, breathing, and using healthy distractions as coping skills that's found helpful. Client stated treatment progress he's seen in herself since starting IOP is decrease in depression, improved ability to bounce back from difficult situations, decrease in anxiety, and improved coping skills. Client stated she is anxious to be discharging from IOP, but recognizes she has more skills that can help her manage her mental health more effectively. Risks/Concerns:: Denies suicidal ideation, plan, or intention to date. Progress Toward Goals/Plan:: Per DSM 5 cross-cutting scores at discharge client's depression decreased by 62.5%, anxiety decreased by 80%, and overall mental health symptoms decreased by 62%. Client reports an improved ability to manage her mental health symptoms by utilizing skills gained throughout IOP. Client does continue to struggle with maintaining sobriety from marijuana. Client is connected with substance abuse treatment through [facility]. Plan is for client to discharge from IOP today and follow up for counseling and medication management through [facility]. Time Stopped:: 11:50
--- NOTE | 2025-05-07 14:27 | BH.DS ---
Discharge Summary Demographics Date of Admission:: 03/10/25 Discharge Date: 05/07/25 Presenting Problems at Admission:: The patient is a 34-year-old single female with a history of depression, anxiety, PTSD, ADD, and methamphetamine use disorder (in full remission for 3 years) who was referred to the [facility] behavioral health IOP by recovery court due to her inability to function well due to the above mental health issues. Patient currently lives alone and is working to gain back her 9-year-old son. Patient has had depressive episodes for most of my life which leave her frozen. She states that she will lie on the couch for weeks at a time and she wants to sleep all the time to escape She endorses sadness, hopelessness, worthlessness, anhedonia, hypersomnia sleeping 8 to 12 hours a day and taking naps. She also endorses low energy, decreased concentration, guilt and passive thoughts of . She states I do not want to really , just not wake up. She denies suicidal ideation, plan for suicide, homicidal ideation, hallucinations, delusions or symptoms of cliff ever. She is a worrier by nature and ruminates negatively. Discharge Diagnoses:: F41.1 Generalized anxiety disorder, F32.2 Major depressive disorder, severe without psychotic features Cannabis use disorder Methamphetamine use disorder, mild, in sustained remission: Attention deficit disorder: PTSD (post-traumatic stress disorder) Reason for Discharge:: Pt has met maximum benefit from mental health IOP and has reported improvement in her mental health functioning. Treatment Progress During Treatment & Response: Per DSM 5 cross-cutting scores at discharge client's depression decreased by 62.5%, anxiety decreased by 80%, and overall mental health symptoms decreased by 62%. Client stated treatment progress she's seen in herself since starting IOP is decrease in depression, improved ability to bounce back from difficult situations, decrease in anxiety, and improved coping skills. Client engagement varied throughout program. At beginning of program client was more interactive and engaged in group sessions. As client was faced with more stressors she struggled with engagement in group sessions, but overall was consistent with attendance. Client did struggle at times with being open about her relapses on marijuana. Client was variable with her follow through on homework provided in sessions. Issues Still to be Addressed:: Client could benefit from continued substance abuse treatment specifically focused on maintaining sobriety from marijuana. Recommended continued work on distress tolerance and building skills to manage unexpected stressors. Discharge Recommendations/Instructions:: Client is recommended to continue treatment with [facility] for ongoing counseling and medication management. Client stated she has weekly counseling appointments every Saturday morning. Discharge Handout
== END 2025-05-07 12:11 | disposition home or self-care (01) ==
LOC: BHIOP 07:14
PROVIDERS: PCP Preventive Medicine Occupational Medicine; Referring Provider Psychiatry & Neurology Psychiatry; Visit Provider Psychiatry & Neurology Psychiatry
DX: F33.2 Major depressive disorder, recurrent severe without psychotic features (principal); F41.1 Generalized anxiety disorder; F43.10 Post-traumatic stress disorder, unspecified; F90.1 Attention-deficit hyperactivity disorder, predominantly hyperactive type; F15.91 Other stimulant use, unspecified, in remission; F12.91 Cannabis use, unspecified, in remission
CPT/HCPCS: H2012; H2020; S9480; 90832